=== PATIENT | male | born 1965 | race Caucasian/White ===

== ENCOUNTER 2017-01-10 11:11 | Inpatient (IN) | payer OTHER ==
[2017-01-09 21:45] VITALS: BP 100/35; PULSE 82; RESP 30; TEMP 96.1; O2SAT 93
[2017-01-10] VITALS (18 sets, daily range): BP systolic 100–118; BP diastolic 35–93; PULSE 72–152; RESP 15–30; TEMP 96.1–97.6; O2SAT 93–97
[~2017-01-10] VITALS: Ht 177.8 cm; Wt 87.5 kg
[~2017-01-10 11:11] MED LIST: CLIN1CAP6 PO; HYDR-3580 PO; LORTA5 PO; MELO15 PO; NAPR500 PO
--- NOTE | 2017-01-10 11:21 | PD ---
Physical Exam Time Seen by Provider: 11:19 Narrative Cough for last 2 weeks; cough and chest congestion. Productive cough of yellow/ green/white sputum. Shortness of breath only with lying down. Fever and chills. Nausea, diarrhea. Taken over the counters with no improvement. No cardiac or lung disease history. Data Data Last Documented VS Vital Signs Date Time Temp Pulse Resp B/P (MAP) Pulse Ox O2 Delivery O2 Flow Rate FiO2 01/10/17 11:17 97.5 140 15 118/93 (101) 95 Orders Orders Complete Blood Count With Diff (01/10/17 11:23) Basic Metabolic Panel (Bmp) (01/10/17 11:23) B-Type Natriuretic Peptide (01/10/17 11:23) Chest, Pa & Lat (01/10/17 11:23) Electrocardiogram (01/10/17 11:23) Labs Laboratory Tests Test 01/10/17 12:19 White Blood Count 13.4 TH/MM3 Red Blood Count 5.04 MIL/MM3 Hemoglobin 17.0 GM/DL Hematocrit 51.0 % Mean Corpuscular Volume 101.1 FL Mean Corpuscular Hemoglobin 33.7 PG Mean Corpuscular Hemoglobin Concent 33.3 % Red Cell Distribution Width 16.8 % Platelet Count 328 TH/MM3 Mean Platelet Volume 8.8 FL Neutrophils (%) (Auto) 68.2 % Lymphocytes (%) (Auto) 21.2 % Monocytes (%) (Auto) 8.6 % Eosinophils (%) (Auto) 0.8 % Basophils (%) (Auto) 1.2 % Neutrophils # (Auto) 9.1 TH/MM3 Lymphocytes # (Auto) 2.9 TH/MM3 Monocytes # (Auto) 1.2 TH/MM3 Eosinophils # (Auto) 0.1 TH/MM3 Basophils # (Auto) 0.2 TH/MM3 CBC Comment DIFF FINAL Differential Comment Blood Urea Nitrogen 17 MG/DL Creatinine 1.06 MG/DL Random Glucose 110 MG/DL Calcium Level 9.3 MG/DL Sodium Level 135 MEQ/L Potassium Level 4.9 MEQ/L Chloride Level 102 MEQ/L Carbon Dioxide Level 24.6 MEQ/L Anion Gap 8 MEQ/L Estimat Glomerular Filtration Rate 74 ML/MIN [facility] Medical Record Reviewed: Yes Supervised Visit with LAMAR: No Scripts No Active Prescriptions or Reported Meds Condition: Stable Ingrid Bush Jan 10, 2017 11:21
--- NOTE | 2017-01-10 11:54 | RADRPT ---
EXAM DATE/TIME: 01/10/2017 11:53 [facility] COMPARISON: No previous studies available for comparison. INDICATIONS : Shortness of breath and cough. MEDICAL HISTORY : None. SURGICAL HISTORY : None. ENCOUNTER: Initial ACUITY: 1 day PAIN SCORE: 0/10 LOCATION: Bilateral chest FINDINGS: The cardiac silhouette is enlarged in transverse diameter. There are findings of congestive heart aicha lure with interstitial and alveolar opacity bilaterally. A small right sided effusion is present. CONCLUSION: 1. Cardiomegaly and findings of congestive heart failure. Irineo Kapoor MD on January 10, 2017 at 11:52 Board Certified Radiologist. This report was verified electronically.
[2017-01-10 12:32] LABS: AUTOMATED NEUTROPHIL # 9.1 TH/MM3 (1.8-7.7); BASOPHIL # 0.2 TH/MM3 (0-0.2); BASOPHIL % 1.2 % (0.0-2.0); EOSINOPHIL # 0.1 TH/MM3 (0-0.4); EOSINOPHIL % 0.8 % (0.0-4.0); HEMO FLAGS DIFF FINAL; LYMPH % 21.2 % (9.0-44.0); LYMPHOCYTE # 2.9 TH/MM3 (1.0-4.8); MEAN CELL VOLUME 101.1 FL (80.0-100.0); MEAN CORPUSCULAR HEMOGLOBIN 33.7 PG (27.0-34.0); MEAN CORPUSCULAR HGB CONC 33.3 % (32.0-36.0); MONO % 8.6 % (0.0-8.0); NEUT % 68.2 % (16.0-70.0); PLATELET COUNT 328 TH/MM3 (150-450); RED BLOOD COUNT 5.04 MIL/MM3 (4.50-5.90); RED CELL DISTRIBUTION WIDTH 16.8 % (11.6-17.2); WHITE BLOOD COUNT 13.4 TH/MM3 (4.0-11.0)
[2017-01-10 12:50] LABS: BICARBONATE 24.6 MEQ/L (21.0-32.0); POTASSIUM 4.9 MEQ/L (3.5-5.1)
[2017-01-10] MEDS ORDERED: FUROSEMIDE 40 MG/4 ML VIAL IV PUSH ONE (13:15)
[2017-01-10] MEDS ORDERED: DILTIAZEM HCL 25 MG/5 ML VIAL IV ONE (13:15)
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
[2017-01-10] MEDS: DILTIAZEM INJ 125 MG in SODIUM CHLORIDE 0.9% INJ 100 ML IV PRN (13:57)
[2017-01-10] MEDS ORDERED: [UNRECOGNIZED DRUG - OTHER] IV ONE (14:15)
[2017-01-10] MEDS ORDERED: HEPARIN SODIUM - IV 10,000 UNITS/10 ML VIAL IV ONE (14:15)
[2017-01-10 14:29] LABS: CKMB 7.8 NG/ML (0.5-3.6)
[2017-01-10 14:51] LABS: MEAN CELL VOLUME 100.4 FL (80.0-100.0); MEAN CORPUSCULAR HEMOGLOBIN 33.4 PG (27.0-34.0); MEAN CORPUSCULAR HGB CONC 33.2 % (32.0-36.0); PLATELET COUNT 304 TH/MM3 (150-450); RED BLOOD COUNT 4.78 MIL/MM3 (4.50-5.90); RED CELL DISTRIBUTION WIDTH 16.8 % (11.6-17.2); REVIEW FLAG FINAL; WHITE BLOOD COUNT 12.9 TH/MM3 (4.0-11.0)
--- NOTE | 2017-01-10 15:02 | PD ---
Physical Exam Date Seen by Provider: Jan 10, 2017 Time Seen by Provider: 14:00 Narrative I, Dr. Farah, have reviewed the advance practice practitioner's documentation and am in agreement, met with the patient face to face, made the diagnosis, and the medical decision making was done by me. *My assessment and Findings: Patient seen and evaluated with PA, please see PA note for further details. Patient apparently has had recent symptoms of shortness of breath, chest discomfort, and is found to be an A. fib with rapid ventricular response. He was initiated on Cardizem in the ER and on evaluation , had pulmonary edema on chest x-ray as well last evaluation, and was given Lasix as well. It is unclear what caused the patient to go into this dysrhythmias and further evaluation was requested with VQ scan. Heparin initiated for new onset A. fib. On exam, he is awake, alert, oriented, and in mild respiratory distress. Cardiac exam reveals fast and irregular heart beats with no rubs or murmurs. Abdomen is soft nontender. Chest evaluation reveals bilateral rails. Laboratory Tests Test 01/10/17 12:19 01/10/17 14:25 White Blood Count 13.4 TH/MM3 (4.0-11.0) 12.9 TH/MM3 (4.0-11.0) Mean Corpuscular Volume 101.1 FL (80.0-100.0) 100.4 FL (80.0-100.0) Monocytes (%) (Auto) 8.6 % (0.0-8.0) Neutrophils # (Auto) 9.1 TH/MM3 (1.8-7.7) Monocytes # (Auto) 1.2 TH/MM3 (0-0.9) Random Glucose 110 MG/DL (74-106) Sodium Level 135 MEQ/L (136-145) Estimat Glomerular Filtration Rate 74 ML/MIN (>89) Total Creatine Kinase 360 U/L (39-308) Creatine Kinase MB 7.8 NG/ML (0.5-3.6) Troponin I 0.21 NG/ML (0.02-0.05) B-Type Natriuretic Peptide 1815 PG/ML (0-100) Last 24 hours Impressions Chest X-Ray 01/10/17 1123 Signed Impressions: Service Date/Time: Tuesday, January 10, 2017 11:53 - CONCLUSION: 1. Cardiomegaly and findings of congestive heart failure. Irineo Kapoor MD BNP is fairly elevated. At this point, plan would be to admit the patient for further treatment. Data Data Last Documented VS Vital Signs Date Time Temp Pulse Resp B/P (MAP) Pulse Ox O2 Delivery O2 Flow Rate FiO2 01/10/17 14:18 105 01/10/17 13:32 20 97 Room Air 01/10/17 11:17 97.5 Orders Orders Complete Blood Count With Diff (01/10/17 11:23) Basic Metabolic Panel (Bmp) (01/10/17 11:23) B-Type Natriuretic Peptide (01/10/17 11:23) Chest, Pa & Lat (01/10/17 11:23) Electrocardiogram (01/10/17 11:23) Ecg Monitoring (01/10/17 13:10) Blood Pressure (01/10/17 13:10) Iv Access Insert/Monitor (01/10/17 13:10) Oximetry (01/10/17 13:10) Diltiazem Inj (Cardizem Inj) (01/10/17 13:15) Furosemide Inj (Lasix Inj) (01/10/17 13:15) Troponin I (01/10/17 13:11) Ckmb (Isoenzyme) Profile (01/10/17 13:11) Ventilation & Perfusion Scan (01/10/17 ) Diltiazem Inj (Cardizem Inj) (01/10/17 13:45) CKMB (01/10/17 12:19) CKMB% (01/10/17 12:19) Heparin Infusion LUPE.Q1H (01/10/17 14:12) Heparin Inj (Heparin Inj) (01/10/17 14:15) Heparin-D5w 20687/250 (For Ed) (Heparin- (01/10/17 14:15) Act Partial Throm Time (Ptt) (01/10/17 14:12) Prothrombin Time / Inr (Pt) (01/10/17 14:12) Cbc No Diff, Includes Plts (01/10/17 14:12) Cbc No Diff, Includes Plts (01/13/17 06:00) Act Partial Throm Time (Ptt) (01/10/17 21:12) Occult Blood (Hemoccult) Stool (01/10/17 14:12) Labs Laboratory Tests Test 01/10/17 12:19 01/10/17 14:25 White Blood Count 13.4 TH/MM3 12.9 TH/MM3 Red Blood Count 5.04 MIL/MM3 4.78 MIL/MM3 Hemoglobin 17.0 GM/DL 15.9 GM/DL Hematocrit 51.0 % 48.0 % Mean Corpuscular Volume 101.1 FL 100.4 FL Mean Corpuscular Hemoglobin 33.7 PG 33.4 PG Mean Corpuscular Hemoglobin Concent 33.3 % 33.2 % Red Cell Distribution Width 16.8 % 16.8 % Platelet Count 328 TH/MM3 304 TH/MM3 Mean Platelet Volume 8.8 FL 8.9 FL Neutrophils (%) (Auto) 68.2 % Lymphocytes (%) (Auto) 21.2 % Monocytes (%) (Auto) 8.6 % Eosinophils (%) (Auto) 0.8 % Basophils (%) (Auto) 1.2 % Neutrophils # (Auto) 9.1 TH/MM3 Lymphocytes # (Auto) 2.9 TH/MM3 Monocytes # (Auto) 1.2 TH/MM3 Eosinophils # (Auto) 0.1 TH/MM3 Basophils # (Auto) 0.2 TH/MM3 CBC Comment DIFF FINAL Differential Comment Blood Urea Nitrogen 17 MG/DL Creatinine 1.06 MG/DL Random Glucose 110 MG/DL Calcium Level 9.3 MG/DL Sodium Level 135 MEQ/L Potassium Level 4.9 MEQ/L Chloride Level 102 MEQ/L Carbon Dioxide Level 24.6 MEQ/L Anion Gap 8 MEQ/L Estimat Glomerular Filtration Rate 74 ML/MIN Total Creatine Kinase 360 U/L Creatine Kinase MB 7.8 NG/ML Creatine Kinase MB % 2.2 % Troponin I 0.21 NG/ML B-Type Natriuretic Peptide 1815 PG/ML [facility] Medical Record Reviewed: Yes Supervised Visit with LAMAR: Yes Diagnosis Primary Impression: Pulmonary edema Additional Impression: Atrial fibrillation with RVR Admitting Information Admitting Physician Requests: Admit Scripts No Active Prescriptions or Reported Meds Condition: Stable Joesph Farah MD Jan 10, 2017 15:02
[2017-01-10 15:04] LABS: APTT (PATIENT) 27.4 SEC (24.3-30.1); INTERNATIONAL NORMALIZED RATIO 1.1 RATIO; PROTHROMBIN TIME - PATIENT 12.7 SEC (9.8-11.6)
--- NOTE | 2017-01-10 16:09 | RADRPT ---
EXAM DATE/TIME: 01/10/2017 15:12 [facility] COMPARISON: CHEST PA & LAT, January 10, 2017, 11:53. INDICATIONS : Short of breath for 1 day. DOSE: 8.5 mCi Tc99m MAA IV 1.1 mCi Tc99m DTPA aerosol MEDICAL HISTORY : Atrial fibrillation and smoker. SURGICAL HISTORY : Ribs and ankle surgery. ENCOUNTER: Initial ACUITY: 1 day PAIN SCALE: 3/10 LOCATION: Bilateral chest TECHNIQUE: Following five minutes of tidal breathing of DTPA aerosol, planar images of the lungs were performed in eight projections. The patient was then injected with MAA, and eight-view perfusion scan was perf ormed. FINDINGS: There is a homogeneous pattern of aerosol delivery to the periphery of both lungs. No focal ventilat ory defects are seen. The perfusion lung scan demonstrates a homogenous pattern of uptake in both lungs. No segmental or s ubsegmental defects are seen. CONCLUSION: Low probability scan for pulmonary embolism Kavin Quiñones MD on January 10, 2017 at 16:06 Board Certified Radiologist. This report was verified electronically.
[2017-01-10] MEDS ORDERED: MAGNESIUM HYDROXIDE SUSP 30 ML CUP PO PRN (16:15)
[2017-01-10] MEDS ORDERED: SODIUM CHLORIDE 0.9% FLUSH 10 ML FLUSH IV FLUSH PRN (16:15)
[2017-01-10] MEDS ORDERED: LACTULOSE SYRUP 20 GM/30 ML CUP PO PRN (16:15)
[2017-01-10] MEDS ORDERED: SENNOSIDES 8.6 MG TAB PO PRN (16:15)
[2017-01-10] MEDS ORDERED: ONDANSETRON HCL 4 MG/2 ML VIAL IVP PRN (16:15)
[2017-01-10] MEDS ORDERED: NALOXONE HCL 0.4 MG/ML AMP IV PUSH PRN (16:15)
[2017-01-10] MEDS ORDERED: BISACODYL 10 MG SUPP RECTAL PRN (16:15)
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
[2017-01-10] MEDS ORDERED: METOPROLOL TARTRATE 25 MG TAB PO ONE (16:45)
[2017-01-10] MEDS: FUROSEMIDE 40 MG/4 ML VIAL IVP SCH (18:22)
[2017-01-10] MEDS ORDERED: ACETAMINOPHEN 500 MG CPLT PO PRN (18:45)
--- NOTE | 2017-01-10 19:47 | MB ---
cc: FERNY SIERRA DATE OF CONSULTATION 01/10/2017 DATE OF 1965 REASON FOR CONSULTATION Atrial fibrillation with RVR. HISTORY OF PRESENT ILLNESS 51-year-old male that presented to the hospital with worsening cough, productive phlegm and worsening shortness of breath. He reports that for the last 2 weeks he has been having fevers, chills, diarrhea. However, today it got to the point where he had severe difficulty breathing with lying down. In the emergency department EKG revealed atrial fibrillation with nonspecific ST changes which is new for him, for which cardiology has been consulted for further management and evaluation. The patient denies chest pain, palpitations , syncope. He reports being an active smoker as well as alcohol user daily. PAST MEDICAL HISTORY 1. Cellulitis. 2. Swelling of the right lower extremity. MEDICATIONS He does not know home medications. PAST SURGICAL HISTORY Has a history of a questionable abdominal surgery. SOCIAL HISTORY Yes to tobacco use. Yes to illicit drug use. ALLERGIES FISH CONTAINING PRODUCTS. CODEINE. IODINE, MILK, POTASSIUM IODINE, POVIDONE IODINE, SODIUM IODINE. REVIEW OF SYSTEMS Negative except for what is mentioned in HPI. FAMILY HISTORY He does not remember any premature coronary artery disease history. PHYSICAL EXAMINATION VITAL SIGNS: Temperature 97.5, respiratory rate 18, heart rate 117, blood pressure 103/81, O2 sats 96% 2 liters nasal cannula. GENERAL: He is an awake, alert, oriented x3 in no acute distress. NECK: No JVD or carotid bruits. HEART: Irregularly irregular with no murmurs, rubs or gallops. LUNGS: Bilateral rales and congestion. ABDOMEN: Benign. EXTREMITIES: No cyanosis or edema. Pulses throughout. LABORATORY DATA CBC hemoglobin 15, hematocrit 48, platelet count 304. INR 1.1. Chemistries sodium 135, potassium 4.9, BUN 17, creatinine 1.06. Troponin 0.21. BNP of 1815. IMAGING Chest x-ray cardiomegaly and findings of pulmonary congestion. VQ scan pending. EKG atrial fibrillation with rapid ventricular response and nonspecific ST changes. ASSESSMENT/PLAN 51-year-old male with no significant cardiac medical history presenting with productive cough, fevers, chills, nausea, diarrhea and worsening shortness of breath on exertion for the last 2 weeks. He has been found to be in atrial fibrillation apparently of new onset. He remains afebrile and hemodynamically stable. He has been started on a Cardizem drip. The first set of cardiac troponin elevated at 0.21. He denies any chest pains, leg edema or PND. It is possible that the troponin elevation could be due to the atrial fibrillation with RVR however it can also be due to acute coronary syndrome, thus at this point I would recommend to admit him to the telemetry unit for two cycles of cardiac enzymes, continue heparin drip as well as Cardizem drip and transition to PO Cardizem when rate is control. Get a 2-D echocardiogram. Start aspirin, statins. An ROSALIND inhibitor as tolerated by blood pressure. He will also need some breathing treatments with Atrovent. Thank you for the opportunity to take part in the care of this patient. Further management to be determined. MD SHIELA Jessica/SILVIA /5:36 PM /7:23 PM MTDNeda
[2017-01-10] MEDS: ACETAMINOPHEN 325 MG TAB PO PRN (20:48)
[2017-01-10] MEDS: SODIUM CHLORIDE 0.9% FLUSH 10 ML FLUSH IV FLUSH SCH (20:48)
[2017-01-10 21:40] LABS: APTT (PATIENT) 47.9 SEC (24.3-30.1)
[2017-01-11] VITALS (31 sets, daily range): BP systolic 103–122; BP diastolic 59–77; PULSE 94–129; RESP 16–28; TEMP 97.5–98.6; O2SAT 91–98
[2017-01-11] MEDS ORDERED: NITROGLYCERIN 0.4 MG SL 25 TABS/BTL SL PRN (01:15)
[2017-01-11 04:01] LABS: AUTOMATED NEUTROPHIL # 5.7 TH/MM3 (1.8-7.7); BASOPHIL # 0.2 TH/MM3 (0-0.2); BASOPHIL % 1.5 % (0.0-2.0); EOSINOPHIL # 0.1 TH/MM3 (0-0.4); EOSINOPHIL % 1.2 % (0.0-4.0); HEMATOCRIT 42.8 % (39.0-51.0); HEMO FLAGS DIFF FINAL; LYMPH % 32.2 % (9.0-44.0); LYMPHOCYTE # 3.3 TH/MM3 (1.0-4.8); MEAN CELL VOLUME 99.9 FL (80.0-100.0); MEAN CORPUSCULAR HEMOGLOBIN 33.2 PG (27.0-34.0); MEAN CORPUSCULAR HGB CONC 33.2 % (32.0-36.0); MONO % 10.1 % (0.0-8.0); PLATELET COUNT 267 TH/MM3 (150-450); RED BLOOD COUNT 4.29 MIL/MM3 (4.50-5.90); RED CELL DISTRIBUTION WIDTH 16.5 % (11.6-17.2); WHITE BLOOD COUNT 10.4 TH/MM3 (4.0-11.0)
[2017-01-11 04:16] LABS: APTT (PATIENT) 77.3 SEC (24.3-30.1)
[2017-01-11 04:37] LABS: ALT (GPT) 65 U/L (12-78); ANION GAP 9 MEQ/L (5-15); AST (GOT) 41 U/L (15-37); BICARBONATE 26.2 MEQ/L (21.0-32.0); BLOOD UREA NITROGEN 20 MG/DL (7-18); CHLORIDE 100 MEQ/L (98-107); GLOMERULAR FILTRATION RATE 62 ML/MIN (>89); POTASSIUM 3.9 MEQ/L (3.5-5.1); SODIUM (NA) 135 MEQ/L (136-145)
[2017-01-11 04:45] LABS: ALKALINE PHOSPHATASE 69 U/L (45-117); TOTAL BILIRUBIN ADULT 0.8 MG/DL (0.2-1.0)
[2017-01-11] MEDS: RESP: ALBUTEROL 2.5 MG/IPRATROPIUM 0.5 MG NEB (SCH) NEB ×4 (08:00→19:55)
--- NOTE | 2017-01-11 08:29 | EKG ---
Date Performed: 01/10/2017 Time Performed: 12:54:58 PTAGE: 51 years EKG: ATRIAL FIBRILLATION WITH RAPID VENTRICULAR RESPONSE POSSIBLE RIGHT VENTRICULAR HYPERTROPHY ABNORMAL ECG PREVIOUS TRACING : 08/10/2005 08.30 When compared to prior EKG, patient is now in atrial fibril lation. DOCTOR: Saida Rosales Interpretating Date/Time 01/11/2017 08:28:46
[2017-01-11] MEDS ORDERED: INFLUENZA VIRUS VACCINE (QUADRIVALENT) 0.5 ML SYR IM ONE (09:00)
[2017-01-11] MEDS ORDERED: PNEUMOCOCCAL POLYVALENT INJ 25 MCG/0.5 ML SYR IM ONE (09:00)
[2017-01-11] MEDS: FUROSEMIDE 40 MG/4 ML VIAL IVP SCH ×2 (09:08→17:47)
[2017-01-11] MEDS: SODIUM CHLORIDE 0.9% FLUSH 10 ML FLUSH IV FLUSH SCH ×2 (09:08→21:54)
--- NOTE | 2017-01-11 11:01 | HHI.PR ---
Subjective Remarks Follow-up CHF, A. fib with RVR. Patient denies chest pain or dyspnea. States that he feels much better today. He has been urinating a lot. Swelling is improving as well. Objective Vitals Vital Signs Date Time Temp Pulse Resp B/P (MAP) Pulse Ox O2 Delivery O2 Flow Rate FiO2 01/11/17 06:00 98 01/11/17 05:00 94 01/11/17 04:00 100 01/11/17 03:00 100 01/11/17 03:00 97.5 96 23 122/73 (89) 95 01/11/17 02:12 96 35 01/11/17 02:00 102 01/11/17 01:00 100 01/11/17 00:30 97.9 99 28 103/67 (79) 91 01/11/17 00:00 100 01/10/17 23:00 93 01/10/17 22:00 88 01/10/17 21:00 72 01/10/17 20:45 96.1 82 30 100/35 (56) 93 01/10/17 20:00 72 01/10/17 19:00 81 01/10/17 18:48 75 106/57 01/10/17 18:25 97.6 75 17 106/57 (73) 96 01/10/17 18:00 01/10/17 17:05 117 01/10/17 16:16 103 01/10/17 16:14 96 Nasal Cannula 2.00 01/10/17 16:10 118 18 103/81 (88) 96 01/10/17 15:15 100 01/10/17 14:18 105 01/10/17 13:57 120 106/86 01/10/17 13:41 132 01/10/17 13:32 127 20 108/84 (92) 97 Room Air 01/10/17 13:28 149 117/85 (96) 01/10/17 13:25 152 18 109/87 (94) 97 Room Air 01/10/17 11:17 97.5 140 15 118/93 (101) 95 I/O 01/10/17 01/10/17 01/10/17 01/11/17 01/11/17 01/11/17 07:00 15:00 23:00 07:00 15:00 23:00 Intake Total 240 ml Output Total 620 ml 300 ml Balance -620 ml -60 ml Intake Oral 240 ml Output Urine Total 620 ml 300 ml Result Diagram: 01/11/17 0350 01/11/17 0350 Imaging Last Impressions Chest X-Ray 01/10/17 1123 Signed Impressions: Service Date/Time: Tuesday, January 10, 2017 11:53 - CONCLUSION: 1. Cardiomegaly and findings of congestive heart failure. Irineo Kapoor MD Lung Scan-VQ Nuclear Medicine 01/10/17 0000 Signed Impressions: Service Date/Time: Tuesday, January 10, 2017 15:12 - CONCLUSION: Low probability scan for pulmonary embolism Kavin Quiñones MD Objective Remarks General: No acute distress. Heart: Regular rate and rhythm. No murmur. Lungs: Clear to auscultation bilaterally. No wheezes, rales, or rhonchi. Breathing is nonlabored. Abdomen: Soft, nontender, nondistended. Extremities: Trace bilateral lower extremity edema. Psych: Alert and oriented. Procedures None Urinary Catheter: No Vascular Central Line Catheter: No A/P Problem List: (1) CHF (congestive heart failure) ICD Code: I50.9 - Heart failure, unspecified Status: Acute (2) Elevated troponin ICD Code: R74.8 - Abnormal levels of other serum enzymes Status: Acute (3) Atrial fibrillation with RVR ICD Code: I48.91 - Unspecified atrial fibrillation Status: Acute Assessment and Plan 1. Atrial fibrillation with RVR: Rate control improved on Cardizem drip. Transition to oral Cardizem. Appreciate cardiology recommendations. 2. New onset congestive heart failure: Swelling is improving. Echocardiogram pending. Continue diuresis with IV Lasix. Monitor strict intake/output. 3. NSTEMI: Troponin elevated. Appreciate cardiology recommendations. On heparin drip. 4. DVT prophylaxis: Heparin. Problem Qualifiers (1) CHF (congestive heart failure): Qualified Codes: I50.9 - Heart failure, unspecified Sidney Haley MD Jan 11, 2017 11:01
[2017-01-11] MEDS: ACETAMINOPHEN 325 MG TAB PO PRN (13:24)
[2017-01-11] MEDS: POTASSIUM CHLORIDE 20 MEQ CONTROLLED RELEASE TAB PO SCH ×2 (13:24→21:54)
--- NOTE | 2017-01-11 18:35 | ECHRPT ---
Indication: Heart Failure CONCLUSIONS The left ventricular systolic function is severely reduced with an estimated ejection fraction in th e range of 25-30%. Mild concentric left ventricular hypertrophy. There is global left ventricular dysfunction. Doppler parameters are consistent with a pseudonormal left ventricular filling pattern with concomin ant abnormal relaxation and increased filling pressure (grade 2 diastolic dysfunction). Mild mitral valve regurgitation. There is mild tricuspid valve regurgitation. BP: 103 / 67 HR: 99 Rhythm: Sinus MEASUREMENTS (Male / Female) Normal Values Technical Quality:Fair 2D ECHO LV Diastolic Diameter PLAX 4.9 cm 4.2 - 5.9 / 3.9 - 5.3 cm LV Systolic Diameter PLAX 4.2 cm IVS Diastolic Thickness 1.4 cm 0.6 - 1.0 / 0.6 - 0.9 cm LVPW Diastolic Thickness 1.3 cm 0.6 - 1.0 / 0.6 - 0.9 cm LV Relative Wall Thickness 0.5 RV Internal Dim ED PLAX 3.8 cm LVOT Diameter 2.0 cm LA Systolic Diameter LX 5.1 cm 3.0 - 4.0 / 2.7 - 3.8 cm M-MODE LV Diastolic Diameter MM 5.8 cm 4.2 - 5.9 / 3.9 - 5.3 cm LV Systolic Diameter MM 5.1 cm LV Ejection Fraction MM Teich 25.6 % LV Cardiac Index MM Teich 1958.5 cm/minm IVS Diastolic Thickness MM 1.1 cm 0.6 - 1.0 / 0.6 - 0.9 cm LVPW Diastolic Thickness MM 1.1 cm 0.6 - 1.0 / 0.6 - 0.9 cm LV Relative Wall Thickness MM 0.4 0.24 - 0.42 / 0.22 - 0.42 LV Mass Index MM 125.2 g/m 49 - 115 / 43 - 95 g/m Aortic Root Diameter MM 3.0 cm AV Cusp Separation MM 2.0 cm DOPPLER AV Peak Velocity 107.0 cm/s AV Peak Gradient 4.6 mmHg LVOT Peak Velocity 51.8 cm/s LVOT Peak Gradient 1.1 mmHg AV Area Cont Eq pk 1.5 cm MV Area PHT 6.1 cm Mitral E Point Velocity 108.0 cm/s Mitral A Point Velocity 77.0 cm/s Mitral E to A Ratio 1.4 LV E' Lateral Velocity 6.0 cm/s Mitral E to LV E' Lateral Ratio 17.9 LV E' Septal Velocity 3.2 cm/s Mitral E to LV E' Septal Ratio 33.5 TR Peak Velocity 274.0 cm/s TR Peak Gradient 30.0 mmHg Right Atrial Pressure 10.0 mmHg Pulmonary Artery Systolic Pressu 40.0 mmHg Right Ventricular Systolic Press 40.0 mmHg PV Peak Velocity 100.0 cm/s PV Peak Gradient 4.0 mmHg FINDINGS LEFT VENTRICLE The left ventricular systolic function is severely reduced with an estimated ejection fraction in th e range of 25-30%. Normal left ventricular size. Mild concentric left ventricular hypertrophy. There is global left ventricular dysfunction. Doppler parameters are consistent with a pseudonormal left ventricular filling pattern with concomin ant abnormal relaxation and increased filling pressure (grade 2 diastolic dysfunction). RIGHT VENTRICLE The right ventricular size is normal. LEFT ATRIUM The left atrial size is [id number]-sa-[id number] dilated. RIGHT ATRIUM The right atrial size is normal. ATRIAL SEPTUM Normal atrial septal thickness without atrial level shunting by limited color doppler interrogation. The interatrial septum bowed from left to right, consistent with increased left atrial pressure. AORTA The aortic root and proximal ascending aorta are normal in size on limited imaging. MITRAL VALVE Structurally normal mitral valve. Mild mitral valve regurgitation. No mitral valve stenosis. AORTIC VALVE Trileaflet aortic valve. No aortic valve stenosis or regurgitation. TRICUSPID VALVE Structurally normal tricuspid valve. There is mild tricuspid valve regurgitation. The estimated pulmonary arterial pressure is 40 mmHg. PULMONARY VALVE No pulmonary valve regurgitation or stenosis. VESSELS The inferior vena cava is normal in size. PERICARDIUM No pericardial effusion. Liang Botello DO (Electronically Signed) Final Date:11 January 2017 18:34
[2017-01-12] VITALS (23 sets, daily range): BP systolic 94–129; BP diastolic 62–86; PULSE 81–124; RESP 14–16; TEMP 97.8–98.7; O2SAT 92–97
[2017-01-12] MEDS: DILTIAZEM INJ 125 MG in SODIUM CHLORIDE 0.9% INJ 100 ML IV PRN ×2 (05:30→21:21)
[2017-01-12 07:05] LABS: BICARBONATE 26.6 MEQ/L (21.0-32.0)
[2017-01-12] MEDS: RESP: ALBUTEROL 2.5 MG/IPRATROPIUM 0.5 MG NEB (SCH) NEB ×4 (07:50→21:17)
[2017-01-12] MEDS: SODIUM CHLORIDE 0.9% FLUSH 10 ML FLUSH IV FLUSH SCH ×2 (08:45→21:22)
[2017-01-12] MEDS: FUROSEMIDE 40 MG/4 ML VIAL IVP SCH ×2 (08:45→18:19)
[2017-01-12] MEDS: DILTIAZEM HCL 30 MG TAB PO SCH ×3 (08:45→18:19)
[2017-01-12] MEDS: POTASSIUM CHLORIDE 20 MEQ CONTROLLED RELEASE TAB PO SCH ×2 (08:45→21:21)
[2017-01-12] MEDS ORDERED: ENOXAPARIN SODIUM 40 MG/0.4 ML SYRINGE SQ SCH (09:30)
--- NOTE | 2017-01-12 09:39 | HHI.PR ---
Subjective Remarks Follow up CHF. Patient states that his breathing has improved. No chest pain, dyspnea, palpitations this morning. Lower extremity swelling also improved. Objective Vitals Vital Signs Date Time Temp Pulse Resp B/P (MAP) Pulse Ox O2 Delivery O2 Flow Rate FiO2 01/12/17 08:45 108 115/86 01/12/17 08:00 100 01/12/17 08:00 97.8 108 16 115/86 (96) 92 01/12/17 07:51 95 Nasal Cannula 2.00 01/12/17 06:00 104 01/12/17 05:30 97 129/69 01/12/17 05:00 108 01/12/17 04:00 118 01/12/17 03:25 112 129/69 01/12/17 03:00 98.7 112 14 129/69 (89) 94 01/12/17 03:00 112 01/12/17 02:25 96 2.00 01/12/17 02:00 106 01/12/17 01:00 106 01/12/17 00:00 106 01/11/17 23:00 106 01/11/17 23:00 98.3 115 16 117/62 (80) 98 01/11/17 22:00 116 01/11/17 21:00 102 01/11/17 20:00 104 01/11/17 19:56 95 Nasal Cannula 2.00 01/11/17 19:00 106 01/11/17 19:00 97.8 97 16 121/74 (90) 97 01/11/17 18:00 106 01/11/17 17:00 114 01/11/17 16:29 96 Nasal Cannula 2.00 01/11/17 16:00 100 01/11/17 15:06 129 01/11/17 15:00 98.6 98 18 113/77 (89) 95 01/11/17 14:07 106 01/11/17 13:00 101 01/11/17 12:04 101 01/11/17 11:36 95 Nasal Cannula 3.00 01/11/17 11:30 98.2 104 22 108/74 (85) 94 01/11/17 11:00 113 01/11/17 10:00 106 I/O 01/11/17 01/11/17 01/11/17 01/12/17 01/12/1701/12/17 07:00 15:00 23:00 07:00 15:00 23:00 Intake Total 240 ml 720 ml 480 ml Output Total 300 ml 1675 ml 1600 ml Balance -60 ml -955 ml -1120 ml Intake Oral 240 ml 720 ml 480 ml Output Urine Total 300 ml 1675 ml 1600 ml # Bowel Movements 1 Result Diagram: 01/11/17 0350 01/12/17 0610 Imaging Last Impressions Chest X-Ray 01/10/17 1123 Signed Impressions: Service Date/Time: Tuesday, January 10, 2017 11:53 - CONCLUSION: 1. Cardiomegaly and findings of congestive heart failure. Irineo Kapoor MD Lung Scan-VQ Nuclear Medicine 01/10/17 0000 Signed Impressions: Service Date/Time: Tuesday, January 10, 2017 15:12 - CONCLUSION: Low probability scan for pulmonary embolism Kavin Quiñones MD Objective Remarks General: No acute distress. Heart: Regular rate and rhythm. No murmur. Lungs: Clear to auscultation bilaterally. No wheezes, rales, or rhonchi. Breathing is nonlabored. Abdomen: Soft, nontender, nondistended. Extremities: Trace bilateral lower extremity edema. Psych: Alert and oriented. Procedures None Urinary Catheter: No Vascular Central Line Catheter: No A/P Problem List: (1) CHF (congestive heart failure) ICD Code: I50.9 - Heart failure, unspecified Status: Acute (2) Elevated troponin ICD Code: R74.8 - Abnormal levels of other serum enzymes Status: Acute (3) Atrial fibrillation with RVR ICD Code: I48.91 - Unspecified atrial fibrillation Status: Acute Assessment and Plan 1. Atrial fibrillation with RVR: Rate still elevated. On Cardizem drip. Start oral Cardizem. Appreciate cardiology recommendations. Heparin drip. 2. New onset congestive heart failure: Swelling is improving. Echocardiogram shows EF 25-30%. Continue diuresis with IV Lasix. Monitor strict intake/output. 3. NSTEMI: Troponin elevated. Appreciate cardiology recommendations. On heparin drip. 4. DVT prophylaxis: Heparin. Problem Qualifiers (1) CHF (congestive heart failure): Qualified Codes: I50.9 - Heart failure, unspecified Sidney Haley MD Jan 12, 2017 09:39
[2017-01-12] MEDS: HEPARIN-D5W 25,000 U/250 ML 250 ML IV PRN (09:45)
[2017-01-12] MEDS: ACETAMINOPHEN 325 MG TAB PO PRN (11:53)
[2017-01-12] MEDS ORDERED: PNEUMOCOCCAL POLYVALENT INJ 25 MCG/0.5 ML SYR IM ONE (12:00)
[2017-01-12] MEDS ORDERED: INFLUENZA VIRUS VACCINE (QUADRIVALENT) 0.5 ML SYR IM ONE (12:00)
[2017-01-12 12:36] LABS: MEAN CELL VOLUME 100.5 FL (80.0-100.0); MEAN CORPUSCULAR HEMOGLOBIN 33.2 PG (27.0-34.0); PLATELET COUNT 260 TH/MM3 (150-450); RED BLOOD COUNT 4.58 MIL/MM3 (4.50-5.90); RED CELL DISTRIBUTION WIDTH 16.7 % (11.6-17.2); REVIEW FLAG FINAL
[2017-01-12 12:45] LABS: APTT (PATIENT) 29.6 SEC (24.3-30.1); INTERNATIONAL NORMALIZED RATIO 1.1 RATIO; PROTHROMBIN TIME - PATIENT 12.1 SEC (9.8-11.6)
[2017-01-12 21:44] LABS: APTT (PATIENT) 30.4 SEC (24.3-30.1)
[2017-01-13] VITALS (23 sets, daily range): BP systolic 100–127; BP diastolic 44–88; PULSE 62–100; RESP 14–19; TEMP 97.7–98.4; O2SAT 94–97
[2017-01-13] MEDS: DILTIAZEM HCL 30 MG TAB PO SCH ×2 (00:26→06:55)
[2017-01-13 07:03] LABS: HEMATOCRIT 44.2 % (39.0-51.0); MEAN CELL VOLUME 100.6 FL (80.0-100.0); MEAN CORPUSCULAR HEMOGLOBIN 33.5 PG (27.0-34.0); MEAN CORPUSCULAR HGB CONC 33.3 % (32.0-36.0); PLATELET COUNT 251 TH/MM3 (150-450); RED CELL DISTRIBUTION WIDTH 16.7 % (11.6-17.2); REVIEW FLAG FINAL; WHITE BLOOD COUNT 9.3 TH/MM3 (4.0-11.0)
[2017-01-13 07:11] LABS: BICARBONATE 28.3 MEQ/L (21.0-32.0); POTASSIUM 4.1 MEQ/L (3.5-5.1)
[2017-01-13] MEDS: RESP: ALBUTEROL 2.5 MG/IPRATROPIUM 0.5 MG NEB (SCH) NEB ×4 (08:00→21:21)
[2017-01-13] MEDS: ACETAMINOPHEN 325 MG TAB PO PRN ×2 (08:34→20:29)
[2017-01-13] MEDS: FUROSEMIDE 40 MG/4 ML VIAL IVP SCH ×2 (08:34→16:49)
[2017-01-13] MEDS: POTASSIUM CHLORIDE 20 MEQ CONTROLLED RELEASE TAB PO SCH ×2 (08:34→20:28)
[2017-01-13] MEDS: SODIUM CHLORIDE 0.9% FLUSH 10 ML FLUSH IV FLUSH SCH ×2 (08:35→20:28)
[2017-01-13 10:07] LABS: APTT (PATIENT) 35.4 SEC (24.3-30.1)
--- NOTE | 2017-01-13 11:28 | HHI.PR ---
Subjective Remarks Follow-up CHF, atrial fibrillation. Patient reports cough that is nonproductive. Denies chest pain or dyspnea. He was placed on supplemental oxygen secondary to low O2 sat overnight. Objective Vitals Vital Signs Date Time Temp Pulse Resp B/P (MAP) Pulse Ox O2 Delivery O2 Flow Rate FiO2 01/13/17 09:21 16 01/13/17 08:00 97 01/13/17 08:00 98.1 96 19 113/88 (96) 97 Manual Cuff/Auscultation 01/13/17 06:00 96 01/13/17 05:00 100 01/13/17 04:00 98.1 88 14 127/44 (71) 94 01/13/17 00:00 92 01/13/17 00:00 88 14 106/60 (75) 94 01/12/17 23:00 94 01/12/17 23:00 88 106/60 01/12/17 22:00 94 01/12/17 21:21 92 101/77 01/12/17 21:20 95 01/12/17 21:00 90 01/12/17 20:00 96 01/12/17 20:00 97.8 89 16 101/77 (85) 94 01/12/17 19:00 110 01/12/17 16:36 97.8 81 16 94/68 (77) 94 01/12/17 16:36 87 01/12/17 16:09 93 01/12/17 12:00 97.9 93 16 111/62 (78) 97 01/12/17 12:00 103 01/12/17 11:00 112 I/O 01/12/17 01/12/17 01/12/17 01/13/17 01/13/17 01/13/17 07:00 15:00 23:00 07:00 15:00 23:00 Intake Total 480 ml 760 ml 480 ml Output Total 1600 ml 975 ml 1150 ml Balance -1120 ml -215 ml -670 ml Intake Oral 480 ml 760 ml 480 ml Output Urine Total 1600 ml 975 ml 1150 ml # Bowel Movements 1 Result Diagram: 01/13/17 0550 01/13/17 0550 Imaging Last Impressions Chest X-Ray 01/10/17 1123 Signed Impressions: Service Date/Time: Tuesday, January 10, 2017 11:53 - CONCLUSION: 1. Cardiomegaly and findings of congestive heart failure. Irineo Kapoor MD Lung Scan-VQ Nuclear Medicine 01/10/17 0000 Signed Impressions: Service Date/Time: Tuesday, January 10, 2017 15:12 - CONCLUSION: Low probability scan for pulmonary embolism Kavin Quiñones MD Objective Remarks General: No acute distress. Heart: Regular rate and rhythm. No murmur. Lungs: Clear to auscultation bilaterally. No wheezes, rales, or rhonchi. Breathing is nonlabored. Abdomen: Soft, nontender, nondistended. Extremities: Trace bilateral lower extremity edema, right greater than left. Psych: Alert and oriented. Procedures None Urinary Catheter: No Vascular Central Line Catheter: No A/P Problem List: (1) CHF (congestive heart failure) ICD Code: I50.9 - Heart failure, unspecified Status: Acute (2) Elevated troponin ICD Code: R74.8 - Abnormal levels of other serum enzymes Status: Acute (3) Atrial fibrillation with RVR ICD Code: I48.91 - Unspecified atrial fibrillation Status: Acute Assessment and Plan 1. Atrial fibrillation with RVR: Rate control improved. Increase oral Cardizem and wean off Cardizem drip. Appreciate cardiology recommendations. Heparin drip. 2. New onset congestive heart failure: Swelling is improving. Echocardiogram shows EF 25-30%. Continue diuresis with IV Lasix. Monitor strict intake/output. 3. NSTEMI: Troponin elevated. Appreciate cardiology recommendations. On heparin drip. 4. DVT prophylaxis: Heparin. Problem Qualifiers (1) CHF (congestive heart failure): Qualified Codes: I50.9 - Heart failure, unspecified Sidney Haley MD Jan 13, 2017 10:42
[2017-01-13] MEDS ORDERED: DILTIAZEM HCL 30 MG TAB PO ONE (11:30)
[2017-01-13] MEDS: DILTIAZEM HCL 60 MG TAB PO SCH (16:49)
[2017-01-14] VITALS (27 sets, daily range): BP systolic 92–116; BP diastolic 50–79; PULSE 60–100; RESP 16–20; TEMP 97.5–98.1; O2SAT 94–97
[2017-01-14 02:23] LABS: APTT (PATIENT) 47.3 SEC (24.3-30.1)
[2017-01-14] MEDS: DILTIAZEM HCL 60 MG TAB PO SCH ×5 (05:52→23:08)
[2017-01-14] MEDS: HEPARIN-D5W 25,000 U/250 ML 250 ML IV PRN (05:58)
[2017-01-14 09:00] LABS: APTT (PATIENT) 43.4 SEC (24.3-30.1)
[2017-01-14] MEDS: SODIUM CHLORIDE 0.9% FLUSH 10 ML FLUSH IV FLUSH SCH ×2 (09:00→20:28)
[2017-01-14] MEDS: RESP: ALBUTEROL 2.5 MG/IPRATROPIUM 0.5 MG NEB (SCH) NEB ×4 (09:36→21:45)
[2017-01-14] MEDS: POTASSIUM CHLORIDE 20 MEQ CONTROLLED RELEASE TAB PO SCH ×2 (09:59→20:28)
--- NOTE | 2017-01-14 11:36 | HHI.PR ---
Subjective Remarks Follow-up A. fib with RVR/systolic CHF/non-ST elevation AR 01/14/17-patient seen and examined, currently rate controlled. BP soft. Denies any chest pain or shortness of breath Objective Vitals Vital Signs Date Time Temp Pulse Resp B/P (MAP) Pulse Ox O2 Delivery O2 Flow Rate FiO2 01/14/17 09:56 97.6 01/14/17 09:00 97.5 72 18 114/74 (87) 94 01/14/17 06:00 88 01/14/17 05:50 87 106/74 (85) 01/14/17 05:00 80 01/14/17 04:00 74 01/14/17 03:30 98.0 77 16 92/50 (64) 96 01/14/17 03:00 84 01/14/17 02:00 80 01/14/17 01:00 84 01/14/17 00:00 74 01/13/17 23:00 74 01/13/17 23:00 98.1 70 16 100/70 (80) 94 01/13/17 22:00 82 01/13/17 21:23 95 01/13/17 21:00 74 01/13/17 20:00 76 01/13/17 20:00 97.7 75 16 103/71 (82) 96 01/13/17 19:00 76 01/13/17 18:00 82 01/13/17 17:00 78 01/13/17 16:00 98.1 62 16 114/82 (93) 94 01/13/17 16:00 90 01/13/17 15:00 82 01/13/17 14:00 90 01/13/17 13:00 90 01/13/17 12:20 96 01/13/17 12:00 89 01/13/17 12:00 98.4 80 18 103/68 (80) 95 I/O 01/13/17 01/13/17 01/13/17 01/14/17 01/14/17 01/14/17 07:00 15:00 23:00 07:00 15:00 23:00 Intake Total 480 ml 1290 ml 661 ml Output Total 1150 ml 1400 ml 1200 ml Balance -670 ml -110 ml -539 ml Intake Oral 480 ml 1080 ml 480 ml IV Total 210 ml 181 ml Output Urine Total 1150 ml 1400 ml 1200 ml # Bowel Movements 1 0 Result Diagram: 01/13/17 0550 01/13/17 0550 Imaging Last Impressions Chest X-Ray 01/10/17 1123 Signed Impressions: Service Date/Time: Tuesday, January 10, 2017 11:53 - CONCLUSION: 1. Cardiomegaly and findings of congestive heart failure. Irineo Kapoor MD Lung Scan-VQ Nuclear Medicine 01/10/17 0000 Signed Impressions: Service Date/Time: Tuesday, January 10, 2017 15:12 - CONCLUSION: Low probability scan for pulmonary embolism Kavin Quiñones MD Objective Remarks GENERAL: NAD SKIN: Warm and dry. HEAD: Normocephalic. EYES: No scleral icterus. No injection or drainage. NECK: Supple, trachea midline. No JVD or lymphadenopathy. CARDIOVASCULAR: Irregular Regular rate and rhythm without murmurs, gallops, or rubs. RESPIRATORY: Breath sounds equal bilaterally. No accessory muscle use. GASTROINTESTINAL: Abdomen soft, non-tender, nondistended. MUSCULOSKELETAL: No cyanosis, or edema. BACK: Nontender without obvious deformity. No CVA tenderness. Procedures None A/P Problem List: (1) Acute systolic CHF (congestive heart failure) ICD Code: I50.21 - Acute systolic (congestive) heart failure (2) Elevated troponin ICD Code: R74.8 - Abnormal levels of other serum enzymes Status: Acute (3) Atrial fibrillation with RVR ICD Code: I48.91 - Unspecified atrial fibrillation Status: Acute Assessment and Plan 51-year-old man with 1-Atrial fibrillation with RVR: Currently on Cardizem 60mg Q6H however will have to change to 240 mg daily secondary to low BP okay with cardiology, Heparin drip. [id number] score of 1 therefore will Start patient on ASA 81 mg daily; d/c Heparin drip 2-Acute Systolic CHF: EF of 25-30%. Secondary to low BP, change Lasix to 20 mg twice a day.Will start ROSALIND-I 2.5mg daily 3-NSTEMI: Appreciate input from cardiology 4-Tobacco abuse: Tobacco counseling provided, declined nicotine patch DVT prophylaxis: Heparin Po Blue MD Jan 14, 2017 11:36
[2017-01-14] MEDS: FUROSEMIDE 20 MG TAB PO SCH ×2 (12:44→18:05)
[2017-01-14] MEDS: ACETAMINOPHEN 325 MG TAB PO PRN (12:45)
[2017-01-15] VITALS (17 sets, daily range): BP systolic 85–140; BP diastolic 58–97; PULSE 62–138; RESP 18–20; TEMP 97.6–98.3; O2SAT 95–98
[2017-01-15 05:23] LABS: HEMATOCRIT 48.8 % (39.0-51.0); MEAN CORPUSCULAR HEMOGLOBIN 33.2 PG (27.0-34.0); MEAN CORPUSCULAR HGB CONC 32.9 % (32.0-36.0); PLATELET COUNT 244 TH/MM3 (150-450); RED BLOOD COUNT 4.84 MIL/MM3 (4.50-5.90); RED CELL DISTRIBUTION WIDTH 16.9 % (11.6-17.2); REVIEW FLAG FINAL; WHITE BLOOD COUNT 7.7 TH/MM3 (4.0-11.0)
[2017-01-15 05:38] LABS: APTT (PATIENT) 43.9 SEC (24.3-30.1)
[2017-01-15] MEDS: DILTIAZEM HCL 60 MG TAB PO SCH (06:00)
[2017-01-15] MEDS: POTASSIUM CHLORIDE 20 MEQ CONTROLLED RELEASE TAB PO SCH (09:23)
[2017-01-15] MEDS: FUROSEMIDE 20 MG TAB PO SCH (09:23)
[2017-01-15] MEDS: SODIUM CHLORIDE 0.9% FLUSH 10 ML FLUSH IV FLUSH SCH (09:28)
--- NOTE | 2017-01-15 10:09 | HHI.PR ---
Subjective Remarks Written by Isa Lopez, acting as scribe for Dr. Blue on 01/15/17 at 10: 09. Follow-up visit A. fib with RVR, acute systolic CHF, and STEMI, tobacco abuse. Patient seen and examined today. Reports he is doing well. Continues to be on heparin drip. Rate has been controlled on Cardizem 60 mg every 6 hours. Denies any chest pain able to get in and out of bed without problems and has been ambulating inside his bedroom. Plan To discharge home today discussed with patient. Denies pain and discomfort. Denies SOB/ dyspnea. Denies chest pain, palpitations, headaches, dizziness. Denies fevers, chills, n/v/d. Objective Vitals Vital Signs Date Time Temp Pulse Resp B/P (MAP) Pulse Ox O2 Delivery O2 Flow Rate FiO2 01/15/17 07:00 Room Air 01/15/17 07:00 98 01/15/17 06:00 94 01/15/17 05:00 96 01/15/17 04:00 Room Air 01/15/17 04:00 100 01/15/17 04:00 98.2 100 20 85/58 (67) 97 01/15/17 03:00 96 01/15/17 02:00 97 01/15/17 01:00 96 01/15/17 00:00 95 01/15/17 00:00 98.3 95 20 100/58 (72) 95 01/15/17 00:00 Room Air 01/14/17 23:00 96 01/14/17 22:00 97 01/14/17 21:47 96 01/14/17 21:00 98 01/14/17 20:00 89 01/14/17 20:00 Room Air 01/14/17 20:00 98.1 89 20 116/79 (91) 96 01/14/17 18:01 98.0 60 18 115/74 (88) 97 01/14/17 18:00 82 01/14/17 17:00 82 01/14/17 16:00 82 01/14/17 15:00 82 01/14/17 14:00 80 01/14/17 13:45 18 01/14/17 13:00 80 01/14/17 12:00 97.8 72 18 110/64 (79) 96 01/14/17 12:00 82 01/14/17 11:00 82 I/O 01/14/17 01/14/17 01/14/17 01/15/17 01/15/17 01/15/17 07:00 15:00 23:00 07:00 15:00 23:00 Intake Total 661 ml 610 ml Output Total 1200 ml 1000 ml Balance -539 ml -390 ml Intake Oral 480 ml 480 ml IV Total 181 ml 130 ml Output Urine Total 1200 ml 1000 ml # Bowel Movements 0 0 Result Diagram: 01/15/17 0452 01/13/17 0550 Imaging Last Impressions Chest X-Ray 01/10/17 1123 Signed Impressions: Service Date/Time: Tuesday, January 10, 2017 11:53 - CONCLUSION: 1. Cardiomegaly and findings of congestive heart failure. Iirneo Kapoor MD Lung Scan-VQ Nuclear Medicine 01/10/17 0000 Signed Impressions: Service Date/Time: Tuesday, January 10, 2017 15:12 - CONCLUSION: Low probability scan for pulmonary embolism Kavin Quiñones MD Objective Remarks GENERAL: This is a well-nourished, well-developed patient, in no apparent distress. SKIN: Warm and dry. HEENT: Normocephalic. Pupils equal round and reactive. Nose without bleeding. Airway patent. NECK: Trachea midline. No JVD. Supple. CARDIOVASCULAR: Regular rate and rhythm without murmurs, gallops, or rubs. RESPIRATORY: Clear to auscultation. Breath sounds equal bilaterally. No wheezes , rales, or rhonchi. GASTROINTESTINAL: Abdomen soft, non-tender, nondistended. Bowel Sounds normoactive x4. MUSCULOSKELETAL: Extremities without clubbing, cyanosis, or edema. NEUROLOGICAL: Awake and alert. Oriented to time, place, person. No focal neuro deficit. Moves all extremities. Normal speech. Procedures None A/P Problem List: (1) Acute systolic CHF (congestive heart failure) ICD Code: I50.21 - Acute systolic (congestive) heart failure (2) Elevated troponin ICD Code: R74.8 - Abnormal levels of other serum enzymes Status: Acute (3) Atrial fibrillation with RVR ICD Code: I48.91 - Unspecified atrial fibrillation Status: Acute Assessment and Plan Patient is a 51-year-old male with a past medical history of TBI who presented for shortness of breath. A. fib RVR - On heparin drip, DC now - [id number] score 1 - Will DC with Cardizem 240mg daily, ASA 81 mg Acute systolic CHF - EF 25-30% - Lasix twice a day 20 mg - Start lisinopril 2.5mg NSTEMI - Start statin and theodore inhibitor as per cardiology recommendation. Tobacco abuse, COPD - Atrovent inhaler when necessary - Counseled to quit smoking. - Nicotine patch. DVT prop ambulatory, heparin drip This note was transcribed by marcelino Lopez. I, Dr. Po Blue personally performed the history, physical exam, and medical decision making; and confirmed the accuracy of the information in the transcribed note. Authenticated by Dr. Po Blue on 01/15/17 at 10:09. Discharge Planning Plan to DC home today. Discuss with patient follow-up visit for PCP and cardiology. Discuss medication management. Isa Parra Jan 15, 2017 10:09 Po Blue MD Jan 15, 2017 10:10
[2017-01-15] MEDS ORDERED: ASPI-99 PO (10:18)
[2017-01-15] MEDS ORDERED: DILT1TAB2 PO (10:18)
[2017-01-15] MEDS ORDERED: LISI-519 PO (10:18)
[2017-01-15] MEDS ORDERED: FURO20TA PO (10:18)
[2017-01-15] MEDS ORDERED: POTA20TA5 PO (10:18)
[2017-01-15] MEDS ORDERED: PILL SPLITTER OTHER PRN (10:30)
[2017-01-15] MEDS ORDERED: DILTIAZEM-CD 240 MG CAP ER PO ONE (10:30)
[2017-01-15] MEDS ORDERED: LIPI10TA PO (11:41)
--- NOTE | 2017-01-15 11:42 | HHI.DS ---
Discharge Summary Admission Date Jan 10, 2017 at 15:40 Discharge Date: Jan 15, 2017 Admitting Diagnosis new onset a fib on RVR, CHF, positive troponin (1) Acute systolic CHF (congestive heart failure) ICD Code: I50.21 - Acute systolic (congestive) heart failure (2) Elevated troponin ICD Code: R74.8 - Abnormal levels of other serum enzymes Status: Acute (3) Atrial fibrillation with RVR ICD Code: I48.91 - Unspecified atrial fibrillation Status: Acute Procedures None Brief History - From Admission Written by Des Barclay, acting as scribe for Dr. Haley on 01/10/17 at 16:38. 51-year-old male with a past medical history of TBI who presented for shortness of breath. The patient has been having shortness of breath for 2 weeks. He states she's been taking several [id number] medications including decongestants because he thought he had a cold or walking pneumonia. He states the shortness breath is worse whenever he lies down and better whenever he sits up. He states his heart rate was fast today and now that his heart rate is a little better the shortness breath is better as well. He complains of chest tightness like a rubber band is around his chest. He complains of some mild pain with breathing that is improved some now that his heart rate is better. He has been having fever, chills, dry heaves, and a small amount of diarrhea. He's been having leg swelling for the past 2 weeks as well. The patient was found to have new onset atrial fibrillation with RVR in the ED and was placed on Cardizem drip and heparin drip. CBC/BMP: 01/15/17 0452 01/13/17 0550 Significant Findings Laboratory Tests Test 01/12/17 20:00 01/13/17 05:50 01/13/17 09:27 01/13/17 18:00 Activated Partial Thromboplast Time 30.4 SEC (24.3-30.1) 35.4 SEC (24.3-30.1) 38.0 SEC (24.3-30.1) Red Blood Count 4.40 MIL/MM3 (4.50-5.90) Mean Corpuscular Volume 100.6 FL (80.0-100.0) Blood Urea Nitrogen 19 MG/DL (7-18) Estimat Glomerular Filtration Rate 79 ML/MIN (>89) Test 01/14/17 01:35 01/14/17 08:17 01/15/17 04:19 01/15/17 04:52 Activated Partial Thromboplast Time 47.3 SEC (24.3-30.1) 43.4 SEC (24.3-30.1) 43.9 SEC (24.3-30.1) Mean Corpuscular Volume 101.0 FL (80.0-100.0) Imaging Last Impressions Chest X-Ray 01/10/17 1123 Signed Impressions: Service Date/Time: Tuesday, January 10, 2017 11:53 - CONCLUSION: 1. Cardiomegaly and findings of congestive heart failure. Irineo Kapoor MD Lung Scan- Nuclear Medicine 01/10/17 0000 Signed Impressions: Service Date/Time: Tuesday, January 10, 2017 15:12 - CONCLUSION: Low probability scan for pulmonary embolism Kavin Quiñones MD PE at Discharge GENERAL: This is a well-nourished, well-developed patient, in no apparent distress. SKIN: Warm and dry. HEENT: Normocephalic. Pupils equal round and reactive. Nose without bleeding. Airway patent. NECK: Trachea midline. No JVD. Supple. CARDIOVASCULAR: Regular rate and rhythm without murmurs, gallops, or rubs. RESPIRATORY: Clear to auscultation. Breath sounds equal bilaterally. No wheezes , rales, or rhonchi. GASTROINTESTINAL: Abdomen soft, non-tender, nondistended. Bowel Sounds normoactive x4. MUSCULOSKELETAL: Extremities without clubbing, cyanosis, or edema. NEUROLOGICAL: Awake and alert. Oriented to time, place, person. No focal neuro deficit. Moves all extremities. Normal speech. Hospital Course A. fib RVR - On heparin drip, DC now - [id number] score 1 - Will DC with Cardizem 240mg daily, ASA 81 mg Acute systolic CHF - EF 25-30% - Lasix twice a day 20 mg - Start lisinopril 2.5mg NSTEMI - Start statin and theodore inhibitor as per cardiology recommendation. Tobacco abuse, COPD - Atrovent inhaler when necessary - Counseled to quit smoking. - Nicotine patch. DVT prop ambulatory, heparin drip Pt Condition on Discharge: Stable Discharge Disposition: Discharge Home Discharge Time: <= 30 minutes Discharge Instructions DIET: Follow Instructions for: Heart Healthy Diet Activities you can perform: Regular-No Restrictions Follow up Referrals: Cardiology PCP Follow-up - 2 Weeks New Medications: Atorvastatin (Lipitor) 10 Mg Tab 10 MG PO HS for Cholesterol Management, #30 TAB 0 Refills Diltiazem ER 24 HR (Cardizem LA) 240 Mg Tricia 240 MG PO DAILY for Regulate Heart Beat, #30 TAB [address] (Adult Aspirin EC Low Strength) 81 Mg Tabec 81 MG PO DAILY for Prevent Blood Clot, #30 TAB Furosemide (Furosemide) 20 Mg Tab 20 MG PO BID@09,18 for Prevent Heart Failure, #60 TAB 11 Refills Lisinopril (Lisinopril) 5 Mg Tab 2.5 MG PO DAILY for Regulate Heart Beat, #30 TAB 11 Refills Potassium Chloride Microencaps (Potassium Chloride Microencaps) 20 Meq Tab 20 MEQ PO Q12HR for Electrolyte Replacement, #60 TAB Po Blue MD Jan 15, 2017 11:42
[2017-01-16] MEDS ORDERED: LISINOPRIL 5 MG TAB PO SCH (09:00)
[2017-01-16] MEDS ORDERED: ASPIRIN EC 81 MG TABEC PO SCH (09:00)
== END 2017-01-15 17:00 | disposition home or self-care (01) | DRG 280 ==
LOC: NEPE 11:11 → NEDA 15:40 → HCIN 18:08
PROVIDERS: ADMIT Hospitalist; ATTEND Hospitalist
DX: I48.91 Unspecified atrial fibrillation (principal); I50.21 Acute systolic (congestive) heart failure; I21.4 Non-ST elevation (NSTEMI) myocardial infarction; Z87.820 Personal history of traumatic brain injury; M79.89 Other specified soft tissue disorders; J44.9 Chronic obstructive pulmonary disease, unspecified; F17.210 Nicotine dependence, cigarettes, uncomplicated; Z91.041 Radiographic dye allergy status; Z23 Encounter for immunization
CPT/HCPCS: 71020; 78582; 80048; 80053; 82272; 82550; 82552; 83880; 84443; 84484; 85025; 85027; 85610; 85730; 90686; 90732; 93005; 93306; 94640; 94664; 96365; 96366; 96368; 96375; A9540; A9567; J1644; J1940; Q2038

== ENCOUNTER 2017-01-30 17:57 | Inpatient (IN) | payer OTHER ==
[~2017-01-30] VITALS: Ht 180.3 cm; Wt 90.0 kg
[~2017-01-30 17:57] MED LIST changes: +ASPI-99 PO; -CLIN1CAP6 PO; +DILT1TAB2 PO; +FURO20TA PO; -HYDR-3580 PO; +LIPI10TA PO; +LISI-519 PO; -LORTA5 PO; -MELO15 PO; -NAPR500 PO; +POTA20TA5 PO
[2017-01-30 18:01] VITALS: PULSE 118; RESP 16; TEMP 98.3; O2SAT 97
[2017-01-30] MEDS ORDERED: DILTIAZEM HCL 25 MG/5 ML VIAL IV ONE (18:30)
[2017-01-30] MEDS ORDERED: FUROSEMIDE 40 MG/4 ML VIAL IV PUSH ONE (18:30)
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
--- NOTE | 2017-01-30 19:07 | RADRPT ---
EXAM DATE/TIME: 01/30/2017 18:25 [place] COMPARISON: CHEST PA & LAT, January 10, 2017, 11:53. INDICATIONS : Chest pain ,short of breath. MEDICAL HISTORY : None. SURGICAL HISTORY : None. ENCOUNTER: Initial ACUITY: 1 day PAIN SCORE: 0/10 LOCATION: Bilateral chest FINDINGS: Compare January 10. Cardiomegaly present with no consolidation. Mild vascular congestion pattern. No s ignificant effusion. No pneumothorax. CONCLUSION: 1. Cardiomegaly with vascular congestion pattern but without airspace disease or significant effusion . Mookie Costa MD on January 30, 2017 at 19:04 Board Certified Radiologist. This report was verified electronically.
[2017-01-30 19:25] LABS: AUTOMATED NEUTROPHIL # 4.5 TH/MM3 (1.8-7.7); BASOPHIL # 0.1 TH/MM3 (0-0.2); BASOPHIL % 0.8 % (0.0-2.0); EOSINOPHIL # 0.2 TH/MM3 (0-0.4); HEMATOCRIT 47.3 % (39.0-51.0); HEMO FLAGS DIFF FINAL; LYMPH % 31.4 % (9.0-44.0); LYMPHOCYTE # 2.5 TH/MM3 (1.0-4.8); MEAN CELL VOLUME 98.9 FL (80.0-100.0); MEAN CORPUSCULAR HEMOGLOBIN 32.7 PG (27.0-34.0); MEAN CORPUSCULAR HGB CONC 33.1 % (32.0-36.0); MONO % 8.3 % (0.0-8.0); NEUT % 57.5 % (16.0-70.0); PLATELET COUNT 242 TH/MM3 (150-450); RED BLOOD COUNT 4.78 MIL/MM3 (4.50-5.90); RED CELL DISTRIBUTION WIDTH 15.9 % (11.6-17.2); WHITE BLOOD COUNT 7.8 TH/MM3 (4.0-11.0)
[2017-01-30 19:37] LABS: APTT (PATIENT) 29.7 SEC (24.3-30.1); INTERNATIONAL NORMALIZED RATIO 1.1 RATIO; PROTHROMBIN TIME - PATIENT 11.7 SEC (9.8-11.6)
[2017-01-30 19:39] VITALS: BP 119/86; PULSE 109; RESP 22; O2SAT 95
[2017-01-30 19:43] LABS: ANION GAP 8 MEQ/L (5-15); BICARBONATE 24.3 MEQ/L (21.0-32.0); CHLORIDE 108 MEQ/L (98-107); GLOMERULAR FILTRATION RATE 95 ML/MIN (>89); MAGNESIUM 1.8 MG/DL (1.5-2.5); SODIUM (NA) 140 MEQ/L (136-145)
[2017-01-30 19:50] LABS: BLOOD UREA NITROGEN 14 MG/DL (7-18); CREATINE KINASE 132 U/L (39-308)
[2017-01-30 20:02] LABS: CKMB 3.5 NG/ML (0.5-3.6)
[2017-01-30] MEDS ORDERED: ONDANSETRON HCL 4 MG/2 ML VIAL IVP PRN (20:30)
[2017-01-30] MEDS ORDERED: MAGNESIUM HYDROXIDE SUSP 30 ML CUP PO PRN (20:30)
[2017-01-30] MEDS ORDERED: SODIUM CHLORIDE 0.9% FLUSH 10 ML FLUSH IV FLUSH PRN (20:30)
[2017-01-30] MEDS ORDERED: SENNOSIDES 8.6 MG TAB PO PRN (20:30)
[2017-01-30] MEDS ORDERED: LACTULOSE SYRUP 20 GM/30 ML CUP PO PRN (20:30)
[2017-01-30] MEDS ORDERED: BISACODYL 10 MG SUPP RECTAL PRN (20:30)
--- NOTE | 2017-01-30 20:36 | HHI.HP ---
HPI Service [facility] Primary Care Physician Unknown Admission Diagnosis Diagnoses: (1) Atrial fibrillation with RVR Diagnosis: Principal (2) CHF (congestive heart failure) Diagnosis: Principal (3) Non-compliance Diagnosis: Principal (4) Alcohol abuse Diagnosis: Principal (5) Tobacco abuse Diagnosis: Principal Travel History International Travel<30 Days: No Contact w/Intl Traveler <30 Da: No Traveled to Known Affected Are: No History of Present Illness This is a 51-year-old male with PMH of HTN, A. fib, CHF (Echo 01/11/17 w/ EF 25- 35%, Grade 2 Diastolic Dysfxn), Alcohol Abuse, Tobacco Abuse and Noncompliance was brought to the ER secondary to complaints of chest pain and SOB. Found to be in A-fib w/ RVR, HR 120's. Recent admit 01/10-01/15/17 for same, found to have New-Onset Afib and CHF w/ elevated troponin, s/p eval by Cardiology w/ recommendation for medical management. Was d/c'd home w/ Diltiazem, Lisinopril , Lasix and Statin, however pt non-compliant w/ medications. States he attempted to get patient assistance but was unable to. S/p Cardizem by EMS, additional dose of Cardizem IV in ER, ultimately started on Cardizem gtt for persistent Afib w/ RVR. CBC unremarkable. Chemistry essentially remarkable. Troponin negative. BNP 724. INR 1.1. CXR with cardiomegaly and vascular congestion, no airspace disease. S/p Lasix in ER. Review of Systems Except as stated in HPI: all other systems reviewed are Neg ROS: 14 point review of systems otherwise negative. Past Family Social History Past Medical History PMH: HTN, A. fib, CHF (Echo 01/11/17 w/ EF 25-35%, Grade 2 Diastolic Dysfxn), Alcohol Abuse, Tobacco Abuse and Noncompliance Past Surgical History PAST SURGICAL HISTORY: Bladder Surgery Allergies: Coded Allergies: Fish Containing Products (Unverified Allergy, Severe, RASH, 01/10/17) codeine (Unverified Allergy, Severe, RASH, 01/10/17) iodine (Unverified Allergy, Severe, RASH, 01/10/17) potassium iodide (Unverified Allergy, Severe, RASH, 01/10/17) povidone-iodine (Unverified Allergy, Severe, RASH, 01/10/17) sodium iodide (Unverified Allergy, Severe, RASH, 01/10/17) sodium iodide (Unverified Allergy, Severe, RASH, 01/10/17) *MDRO Multi-Drug Resistant Organism (Unverified Adverse Reaction, Unknown , 01/10/17) MRSA Family History PAST FAMILY HISTORY: Reviewed. No h/o DM or CAD Social History PAST SOCIAL HISTORY: Drinks daily 4-6 beers. Smokes 1-2 ppd. Negative for drugs. Physical Exam Vital Signs Vital Signs Date Time Temp Pulse Resp B/P (MAP) Pulse Ox O2 Delivery O2 Flow Rate FiO2 01/30/17 19:39 109 22 119/86 (97) 95 Room Air 01/30/17 18:10 124 94 01/30/17 18:01 98.3 118 16 97 Physical Exam PE: GENERAL: Middle-aged male in no acute distress. HEENT: PERRLA, EOMI. No scleral icterus or conjunctival pallor. No lid lag or facial droop. CARDIOVASCULAR: Irregularly irregular, in A. fib. No obvious murmurs to auscultation. No chest tenderness to palpation. RESPIRATORY: No obvious rhonchi or wheezing. Clear to auscultation. Breath sounds equal bilaterally. GASTROINTESTINAL: Abdomen soft, non-tender, nondistended. BS normal. MUSCULOSKELETAL: Extremities without clubbing, cyanosis, or edema. No obvious deformities. NEUROLOGICAL: Awake, alert and oriented x4. No focal neurologic deficits. Moving both upper and lower extremities spontaneously. Laboratory Laboratory Tests Test 01/30/17 18:35 White Blood Count 7.8 Red Blood Count 4.78 Hemoglobin 15.6 Hematocrit 47.3 Mean Corpuscular Volume 98.9 Mean Corpuscular Hemoglobin 32.7 Mean Corpuscular Hemoglobin Concent 33.1 Red Cell Distribution Width 15.9 Platelet Count 242 Mean Platelet Volume 8.6 Neutrophils (%) (Auto) 57.5 Lymphocytes (%) (Auto) 31.4 Monocytes (%) (Auto) 8.3 Eosinophils (%) (Auto) 2.0 Basophils (%) (Auto) 0.8 Neutrophils # (Auto) 4.5 Lymphocytes # (Auto) 2.5 Monocytes # (Auto) 0.6 Eosinophils # (Auto) 0.2 Basophils # (Auto) 0.1 CBC Comment DIFF FINAL Differential Comment Prothrombin Time 11.7 Prothromb Time International Ratio 1.1 Activated Partial Thromboplast Time 29.7 Blood Urea Nitrogen 14 Creatinine 0.86 Random Glucose 114 Calcium Level 9.3 Magnesium Level 1.8 Sodium Level 140 Potassium Level 4.0 Chloride Level 108 Carbon Dioxide Level 24.3 Anion Gap 8 Estimat Glomerular Filtration Rate 95 Total Creatine Kinase 132 Creatine Kinase MB 3.5 Troponin I 0.03 B-Type Natriuretic Peptide 724 Thyroid Stimulating Hormone 3rd Gen 1.090 Result Diagram: 01/30/17183401/30/171834 Karyn VTE Risk Assessment Karyn VTE Risk Assessment: No/Low Risk (score <= 1) Caprini Risk Assessment Model Point Value = 1 Point Value = 2 Point Value = 3 Point Value = 5 Age 41-60 Minor surgery BMI > 25 kg/m2 Swollen legs Varicose veins or History of unexplained or recurrent spontaneous Oral contraceptives or hormone replacement Sepsis (< 1 month) Serious lung disease, including pneumonia (< 1 month) Abnormal pulmonary function Acute myocardial infarction Congestive heart failure (< 1 month) History of inflammatory bowel disease Medical patient at bed rest Age 61-74 Arthroscopic surgery Major open surgery (> 45 min) Laparoscopic surgery (> 45 min) Malignancy Confined to bed (> 72 hours) Immobilizing plaster cast Central venous access Age >= 75 History of VTE Family history of VTE Factor V Leiden Prothrombin [id number] Lupus anticoagulant Anticardiolipin antibodies Elevated serum homocysteine Heparin-induced thrombocytopenia Other congenital or acquired thrombophilia Stroke (< 1 month) Elective arthroplasty Hip, pelvis, or leg fracture Acute spinal cord injury (< 1 month) Prophylaxis Regimen Total Risk Factor Score Risk Level Prophylaxis Regimen 0-1 Low Early ambulation 2 Moderate Order ONE of the following: *Sequential Compression Device (SCD) *Heparin 5000 units SQ BID 3-4 Higher Order ONE of the following medications: *Heparin 5000 units SQ TID *Enoxaparin/Lovenox 40 mg SQ daily (WT < 150 kg, CrCl > 30 mL/min) *Enoxaparin/Lovenox 30 mg SQ daily (WT < 150 kg, CrCl > 10-29 mL/min) *Enoxaparin/Lovenox 30 mg SQ BID (WT < 150 kg, CrCl > 30 mL/min) AND/OR *Sequential Compression Device (SCD) 5 or more Highest Order ONE of the following medications: *Heparin 5000 units SQ TID (Preferred with Epidurals) *Enoxaparin/Lovenox 40 mg SQ daily (WT < 150 kg, CrCl > 30 mL/min) *Enoxaparin/Lovenox 30 mg SQ daily (WT < 150 kg, CrCl > 10-29 mL/min) *Enoxaparin/Lovenox 30 mg SQ BID (WT < 150 kg, CrCl > 30 mL/min) AND *Sequential Compression Device (SCD) Assessment and Plan Problem List: (1) Atrial fibrillation with RVR ICD Code: I48.91 - Unspecified atrial fibrillation Status: Acute (2) CHF (congestive heart failure) ICD Code: I50.9 - Heart failure, unspecified Status: Acute (3) Non-compliance ICD Code: Z91.19 - Patient's noncompliance with other medical treatment and regimen (4) Alcohol abuse ICD Code: F10.10 - Alcohol abuse, uncomplicated (5) Tobacco abuse ICD Code: Z72.0 - Tobacco use Assessment and Plan A/P: 1. A-fib: w/ RVR, recent admit 01/11-01/15/17 diagnosed w/ A-fib, noncompliant w / meds, now w/ A-fib w/ RVR, HR 120's, s/p Cardizem IV x2 w/ no improvement, currently on Cardizem gtt. Admit to [facility], continue Cardizem gtt, resume home medications. 2. CHF: Acute on Chronic. Systolic and Diastolic. Echo 01/11/17 w/ EF 25-30% , Grade 2 Diastolic Dysfunction. BNP 724. CXR w/ pulmonary vascular congestion. S/p Lasix 40mg IV in ER, will continue w/ IV Lasix. Monitor I/O. 3. Non-Compliance: recent admit, d/c'd w/ Cardizem, Lisinopril, Lasix however states unable to obtain patient assistance and can't afford medications. Case Management consult. 4. Alcohol Abuse: Drinks 4-6 beers daily, high risk for withdrawal, CIWA, Seizure Precautions, MVT/Thiamine/Folate replacement. 5. Tobacco Abuse: Counselled. Ativan prn. 6. DVT Prophylaxis: SCD/Teds. 7. Social work for d/c planning as needed. 8. Case discussed w/ ER physician at length. Physician Certification 2 Midnight Certification Type: Admission for Inpatient Services Order for Inpatient Services The services are ordered in accordance with Medicare regulations or non- Medicare payer requirements, as applicable. In the case of services not specified as inpatient-only, they are appropriately provided as inpatient services in accordance with the 2-midnight benchmark. Estimated LOS (days): 2 days is the estimated time the patient will need to remain in the hospital, assuming treatment plan goals are met and no additional complications. Post-Hospital Plan: Not yet determined Conchita Castillo MD Jan 30, 2017 20:36
[2017-01-30] MEDS: DOCUSATE SODIUM 50 MG/SENNA 8.6 MG TAB PO SCH (21:00)
[2017-01-30] MEDS ORDERED: PILL SPLITTER OTHER PRN (21:00)
[2017-01-30] MEDS: DILTIAZEM INJ 125 MG in SODIUM CHLORIDE 0.9% INJ 100 ML IV PRN (21:43)
[2017-01-30 21:44] VITALS: BP 133/94; PULSE 117; RESP 18; TEMP 98.1; O2SAT 95
[2017-01-30] MEDS: SODIUM CHLORIDE 0.9% FLUSH 10 ML FLUSH IV FLUSH SCH (21:44)
[2017-01-30 21:48] VITALS: PULSE 125
[2017-01-30] MEDS: ATORVASTATIN 10 MG TAB PO SCH (21:49)
[2017-01-30] MEDS: ACETAMINOPHEN 325 MG TAB PO PRN (21:49)
[2017-01-30 22:00] VITALS: PULSE 128
[2017-01-30 23:00] VITALS: BP 119/64; PULSE 122; PULSE 126; RESP 18; O2SAT 96
[2017-01-30] MEDS ORDERED: LORazepam 2 MG TAB PO PRN (23:30)
[2017-01-30] MEDS ORDERED: LORazepam 2 MG/ML VIAL IV PUSH PRN ×4 (23:30)
[2017-01-30] MEDS ORDERED: FLUMAZENIL 0.5 MG/5 ML VIAL IV PUSH PRN (23:30)
[2017-01-30] MEDS ORDERED: HALOPERIDOL LACTATE 5 MG/ML AMP IM PRN (23:30)
[2017-01-30] MEDS ORDERED: LORazepam 1 MG TAB PO PRN (23:30)
[2017-01-31] VITALS (29 sets, daily range): BP systolic 104–125; BP diastolic 54–75; PULSE 71–124; RESP 16–20; TEMP 97.4–98.7; O2SAT 93–96
[2017-01-31] MEDS: DILTIAZEM INJ 125 MG in SODIUM CHLORIDE 0.9% INJ 100 ML IV PRN ×2 (05:51→21:21)
[2017-01-31 07:02] LABS: AUTOMATED NEUTROPHIL # 3.4 TH/MM3 (1.8-7.7); BASOPHIL # 0.1 TH/MM3 (0-0.2); BASOPHIL % 0.9 % (0.0-2.0); EOSINOPHIL # 0.3 TH/MM3 (0-0.4); EOSINOPHIL % 4.5 % (0.0-4.0); HEMATOCRIT 48.4 % (39.0-51.0); HEMO FLAGS DIFF FINAL; LYMPH % 38.9 % (9.0-44.0); LYMPHOCYTE # 2.8 TH/MM3 (1.0-4.8); MEAN CELL VOLUME 99.6 FL (80.0-100.0); MEAN CORPUSCULAR HEMOGLOBIN 33.3 PG (27.0-34.0); MEAN CORPUSCULAR HGB CONC 33.4 % (32.0-36.0); MONO % 9.1 % (0.0-8.0); NEUT % 46.6 % (16.0-70.0); PLATELET COUNT 236 TH/MM3 (150-450); RED BLOOD COUNT 4.86 MIL/MM3 (4.50-5.90); WHITE BLOOD COUNT 7.3 TH/MM3 (4.0-11.0)
[2017-01-31 07:31] LABS: ANION GAP 11 MEQ/L (5-15); AST (GOT) 35 U/L (15-37); BICARBONATE 27.3 MEQ/L (21.0-32.0); BLOOD UREA NITROGEN 16 MG/DL (7-18); CHLORIDE 105 MEQ/L (98-107); GLOMERULAR FILTRATION RATE 106 ML/MIN (>89); POTASSIUM 3.6 MEQ/L (3.5-5.1); SODIUM (NA) 143 MEQ/L (136-145)
[2017-01-31 07:35] LABS: ALKALINE PHOSPHATASE 68 U/L (45-117); ALT (GPT) 50 U/L (12-78)
[2017-01-31] MEDS: SODIUM CHLORIDE 0.9% FLUSH 10 ML FLUSH IV FLUSH SCH ×2 (08:43→21:16)
[2017-01-31] MEDS: FOLIC ACID 1 MG TAB PO SCH (08:43)
[2017-01-31] MEDS: THIAMINE HCL 100 MG TAB PO SCH (08:43)
[2017-01-31] MEDS: DOCUSATE SODIUM 50 MG/SENNA 8.6 MG TAB PO SCH ×2 (08:43→21:00)
[2017-01-31] MEDS: MULTIVITAMINS/MINERALS THERAPEUTIC TAB PO SCH (08:43)
[2017-01-31] MEDS: FUROSEMIDE 40 MG/4 ML VIAL IV PUSH SCH ×2 (08:44→17:20)
[2017-01-31] MEDS: LISINOPRIL 5 MG TAB PO SCH (08:44)
[2017-01-31] MEDS: ASPIRIN EC 81 MG TABEC PO SCH (08:44)
--- NOTE | 2017-01-31 09:04 | HHI.PR ---
Subjective Remarks Follow-up A. denise with RVR/acute on chronic systolic CHF 01/31/17-patient seen and examined, denies any shortness of breath currently HR< 100 however BP soft. Patient states, he did not fill out his medication as prescribed during his last hospitalization Objective Vitals Vital Signs Date Time Temp Pulse Resp B/P (MAP) Pulse Ox O2 Delivery O2 Flow Rate FiO2 01/31/17 08:40 82 131/90 01/31/17 06:00 84 01/31/17 05:51 78 01/31/17 05:00 80 01/31/17 04:22 78 18 122/65 (84) 96 01/31/17 04:20 78 122/65 01/31/17 04:00 90 01/31/17 03:00 88 01/31/17 02:00 100 01/31/17 01:00 114 01/31/17 01:00 108 126/67 01/31/17 00:00 112 01/30/17 23:00 122 18 119/64 (82) 96 01/30/17 23:00 122 119/64 01/30/17 23:00 126 01/30/17 22:00 128 01/30/17 21:48 125 01/30/17 21:44 98.1 117 18 133/94 (107) 95 01/30/17 21:43 117 133/94 01/30/17 21:23 01/30/17 19:39 109 22 119/86 (97) 95 Room Air 01/30/17 18:10 124 94 01/30/17 18:01 98.3 118 16 97 I/O 01/30/17 01/30/17 01/30/17 01/31/17 01/31/17 01/31/17 07:00 15:00 23:00 07:00 15:00 23:00 Intake Total 425 ml Balance 425 ml Intake Oral 300 ml IV Total 125 ml # Voids 2 # Bowel Movements 0 Result Diagram: 01/31/1750401/31/17 050 Imaging Last Impressions Chest X-Ray 01/30/171812 Signed Impressions: Service Date/Time: Monday, January 30, 2017 18:25 - CONCLUSION: 1. Cardiomegaly with vascular congestion pattern but without airspace disease or significant effusion. Mookie Costa MD Objective Remarks GENERAL: NAD SKIN: Warm and dry. HEAD: Normocephalic. EYES: No scleral icterus. No injection or drainage. NECK: Supple, trachea midline. No JVD or lymphadenopathy. CARDIOVASCULAR: Regular rate and rhythm without murmurs, gallops, or rubs. RESPIRATORY: Breath sounds equal bilaterally. No accessory muscle use. GASTROINTESTINAL: Abdomen soft, non-tender, nondistended. MUSCULOSKELETAL: No cyanosis, or edema. BACK: Nontender without obvious deformity. No CVA tenderness. A/P Problem List: (1) Atrial fibrillation with RVR ICD Code: I48.91 - Unspecified atrial fibrillation Status: Acute (2) CHF (congestive heart failure) ICD Code: I50.9 - Heart failure, unspecified Status: Acute (3) Non-compliance ICD Code: Z91.19 - Patient's noncompliance with other medical treatment and regimen (4) Alcohol abuse ICD Code: F10.10 - Alcohol abuse, uncomplicated (5) Tobacco abuse ICD Code: Z72.0 - Tobacco use Assessment and Plan 51-year-old man with 1. A-fib: w/ RVR, recent admit 01/11-01/15/17 diagnosed w/ A-fib, noncompliant w/ meds, currently on Cardizem gtt..... Transition to by mouth Cardizem and resume aspirin [id number] score of 1 2. CHF: Acute on Chronic. Systolic and Diastolic. Echo 01/11/17 w/ EF 25-30%, Grade 2 Diastolic Dysfunction. CXR w/ pulmonary vascular congestion. continue w/ IV Lasix. Monitor I/O. May benefit from Entresto; however cost of the medication may be an issue 3. Non-Compliance: recent admit, d/c'd w/ Cardizem, Lisinopril, Lasix however states unable to obtain patient assistance and can't afford medications. 4. Alcohol Abuse: Drinks 4-6 beers daily, high risk for withdrawal, CIWA, Seizure Precautions, MVT/Thiamine/Folate replacement. 5. Tobacco Abuse: Counselled. Ativan prn. 6. DVT Prophylaxis: SCD/Teds. Po Blue MD Jan 31, 2017 09:04
--- NOTE | 2017-01-31 10:25 | EKG ---
Date Performed: 01/30/2017 Time Performed: 18:44:04 PTAGE: 51 years EKG: ATRIAL FIBRILLATION WITH RAPID VENTRICULAR RESPONSE BORDERLINE RIGHT AXIS DEVIATION NONSPEC IFIC T-WAVE ABNORMALITY ABNORMAL RHYTHM ECG Compared to prior tracing no significant change PREVIOUS TRACING : 01/10/2017 12.54 DOCTOR: Reuben Dawson Interpretating Date/Time 01/31/2017 10:24:24
[2017-01-31] MEDS: ACETAMINOPHEN 325 MG TAB PO PRN (15:31)
[2017-01-31] MEDS: ATORVASTATIN 10 MG TAB PO SCH (21:16)
[2017-01-31] MEDS: POTASSIUM CHLORIDE 20 MEQ CONTROLLED RELEASE TAB PO SCH (21:49)
[2017-02-01] VITALS (27 sets, daily range): BP systolic 96–115; BP diastolic 47–68; PULSE 64–104; RESP 18–20; TEMP 97.7–98.6; O2SAT 93–97
[2017-02-01] MEDS: ACETAMINOPHEN 325 MG TAB PO PRN ×2 (00:23→19:55)
[2017-02-01 06:22] LABS: POTASSIUM 3.5 MEQ/L (3.5-5.1)
[2017-02-01] MEDS: FOLIC ACID 1 MG TAB PO SCH (09:00)
[2017-02-01] MEDS: DOCUSATE SODIUM 50 MG/SENNA 8.6 MG TAB PO SCH ×2 (09:00→19:55)
[2017-02-01] MEDS ORDERED: ASPIRIN EC 81 MG TABEC PO SCH (09:00)
[2017-02-01] MEDS: SODIUM CHLORIDE 0.9% FLUSH 10 ML FLUSH IV FLUSH SCH ×2 (09:00→19:55)
[2017-02-01] MEDS: DILTIAZEM-CD 240 MG CAP ER PO SCH (09:24)
[2017-02-01] MEDS: THIAMINE HCL 100 MG TAB PO SCH (09:24)
[2017-02-01] MEDS: POTASSIUM CHLORIDE 20 MEQ CONTROLLED RELEASE TAB PO SCH ×2 (09:24→19:55)
[2017-02-01] MEDS: LISINOPRIL 5 MG TAB PO SCH (09:25)
[2017-02-01] MEDS: ASPIRIN EC 81 MG TABEC PO SCH (09:25)
[2017-02-01] MEDS: MULTIVITAMINS/MINERALS THERAPEUTIC TAB PO SCH (09:25)
[2017-02-01] MEDS: FUROSEMIDE 40 MG/4 ML VIAL IV PUSH SCH ×2 (09:26→17:50)
--- NOTE | 2017-02-01 12:06 | HHI.PR ---
Subjective Remarks Follow-up for atrial fibrillation and CHF Patient stated that he has shortness of breathing intermittently. Shortness of breathing mostly with exertion and he feels his heart racing. Denies any chest pain. Discussed with patient's nurse. Objective Vitals Vital Signs Date Time Temp Pulse Resp B/P (MAP) Pulse Ox O2 Delivery O2 Flow Rate FiO2 02/01/17 11:31 98.6 91 18 100/68 (79) 94 02/01/17 11:01 91 02/01/17 10:01 96 02/01/17 09:01 96 02/01/17 08:01 97.7 103 18 106/55 (72) 97 02/01/17 08:00 88 02/01/17 07:01 91 02/01/17 05:00 88 02/01/17 04:00 100 02/01/17 03:15 98.6 67 20 106/68 (81) 96 02/01/17 03:00 98 02/01/17 02:00 82 02/01/17 01:30 14 02/01/17 01:00 84 02/01/17 00:00 86 01/31/17 23:30 83 20 104/74 (84) 96 01/31/17 23:00 84 01/31/17 22:00 84 01/31/17 21:21 76 110/72 01/31/17 21:00 90 01/31/17 20:00 96 01/31/17 19:42 97.4 82 16 125/54 (77) 95 01/31/17 19:00 88 01/31/17 18:00 97 01/31/17 17:21 72 112/55 01/31/17 17:00 78 01/31/17 16:00 82 01/31/17 15:30 98.7 90 20 106/67 (80) 95 01/31/17 15:00 96 01/31/17 14:00 96 01/31/17 13:00 88 I/O 01/31/17 01/31/17 01/31/17 02/01/17 02/01/17 02/01/17 07:00 15:00 23:00 07:00 15:00 23:00 Intake Total 425 ml 680 ml 975 ml Output Total 1400 ml 575 ml Balance 425 ml -720 ml 400 ml Intake Oral 300 ml 680 ml 720 ml IV Total 125 ml 255 ml Output Urine Total 1400 ml 575 ml # Voids 2 1 # Bowel Movements 0 2 Result Diagram: 01/31/17 0505 02/01/17 0422 Objective Remarks GENERAL: in NAD CARDIOVASCULAR: Irregular rate irregular rhythm without murmurs, gallops, or rubs. RESPIRATORY: Breath sounds equal bilaterally. No accessory muscle use. GASTROINTESTINAL: Abdomen soft, non-tender, nondistended. MUSCULOSKELETAL: No cyanosis, or edema. BACK: Nontender without obvious deformity. No CVA tenderness. Medications and IVs Current Medications Diltiazem HCl (Cardizem Inj) 20 mg ONCE ONCE IV Last administered on 18:51; Start 01/30/17 at 18:30; Stop 01/30/17 at 18:31; Status DC Furosemide (Lasix Inj) 40 mg ONCE ONCE IV PUSH Last administered on 18:52; Start 01/30/17 at 18:30; Stop 01/30/17 at 18:31; Status DC Diltiazem HCl 125 mg/Sodium Chloride 125 ml @ 5 mls/hr TITRATE PRN IV Tachycardia Last administered on 01/31/17 21:21; Start 01/30/17 at 19:30; Stop 02/01/17 at 09:14; Status DC Furosemide (Lasix Inj) 40 mg BID@09,18 IV PUSH Last administered on 02/01/17 09:26; Start 01/31/17 at 09:00 Sodium Chloride (NS Flush) 2 ml UNSCH PRN IV FLUSH FLUSH AFTER USING IV ACCESS ; Start 01/30/17 at 20:30 Sodium Chloride (NS Flush) 2 ml BID IV FLUSH Last administered on 02/01/17 09 :00; Start 01/30/17 at 21:00 Ondansetron HCl (Zofran Inj) 4 mg Q6H PRN IVP NAUSEA OR VOMITING; Start at 20:30 Acetaminophen (Tylenol) 650 mg Q6H PRN PO FEVER/PAIN SCALE 1 TO 2 Last administered on 02/01/17 00:23; Start 01/30/17 at 20:30 Morphine Sulfate (Morphine Inj) 2 mg Q3H PRN IV PUSH Pain 6-10; Start at 20:30 Senna/Docusate Sodium (Kiya-Colace) 1 tab BID PO Last administered on 08:43; Start 01/30/17 at 21:00 Magnesium Hydroxide (Milk Of Magnesia Liq) 30 ml Q12H PRN PO Mild constipation ; Start 01/30/17 at 20:30 Sennosides (Senokot) 17.2 mg Q12H PRN PO Moderate constipation; Start at 20:30 Bisacodyl (Dulcolax Supp) 10 mg DAILY PRN RECTAL SEVERE CONSITIPATION; Start 01/30/17 at 20:30 Lactulose (Lactulose Liq) 30 ml DAILY PRN PO SEVERE CONSITIPATION; Start 01/30 at 20:30 Aspirin (Ecotrin Ec) 81 mg DAILY PO Last administered on 02/01/17 09:25; Start 01/31/17 at 09:00 Atorvastatin Calcium (Lipitor) 10 mg HS PO Last administered on 01/31/17 21: 16; Start 01/30/17 at 21:00 Lisinopril (Prinivil) 2.5 mg DAILY PO Last administered on 02/01/17 09:25; Start 01/31/17 at 09:00 Miscellaneous (Pill Splitter) 1 ea UNSCH PRN OTHER SEE LABEL COMMENTS; Start 01/30/17 at 21:00 Folic Acid (Folate) 1 mg DAILY PO Last administered on 02/01/17 09:00; Start 01/31/17 at 09:00; Stop 02/05/17 at 08:59 Thiamine HCl (Vitamin B1) 100 mg DAILY PO Last administered on 02/01/17 09:24 ; Start 01/31/17 at 09:00 Multivitamins/ Minerals Therapeutic (Theragran M Tab) 1 tab DAILY PO Last administered on 02/01/17 09:25; Start 01/31/17 at 09:00; Stop 02/05/17 at 08 :59 Flumazenil (Romazicon Inj) 0.2 mg Q1M PRN IV PUSH SEE LABEL COMMENTS; Start at 23:30 Lorazepam (Ativan) 1 mg Q4H PRN PO CIWA 8 - 10; Start 01/30/17 at 23:30 Lorazepam (Ativan Inj) 1 mg Q4H PRN IV PUSH CIWA 8 - 10; Start 01/30/17 at 23: 30 Lorazepam (Ativan) 2 mg Q2H PRN PO CIWA 11-14; Start 01/30/17 at 23:30 Lorazepam (Ativan Inj) 2 mg Q2H PRN IV PUSH CIWA 11-14; Start 01/30/17 at 23: 30 Lorazepam (Ativan Inj) 2 mg Q1H PRN IV PUSH CIWA 15-20; Start 01/30/17 at 23: 30 Lorazepam (Ativan Inj) 2 mg Q15M PRN IV PUSH CIWA > 20; Start 01/30/17 at 23: 30 Haloperidol Lactate (Haldol Inj) 2 mg Q15M PRN IM SEE LABEL COMMENTS; Start at 23:30 Aspirin (Ecotrin Ec) 81 mg DAILY PO ; Start 02/01/17 at 09:00; Stop 02/01/17 at 09:00; Status DC Diltiazem HCl (Cardizem Cd) 240 mg DAILY PO Last administered on 02/01/17 09: 24; Start 02/01/17 at 09:00 Potassium Chloride (KCl) 20 meq Q12HR PO Last administered on 02/01/17 09:24 ; Start 01/31/17 at 21:00 A/P Problem List: (1) Atrial fibrillation with RVR ICD Code: I48.91 - Unspecified atrial fibrillation Status: Acute (2) CHF (congestive heart failure) ICD Code: I50.9 - Heart failure, unspecified Status: Acute (3) Non-compliance ICD Code: Z91.19 - Patient's noncompliance with other medical treatment and regimen (4) Alcohol abuse ICD Code: F10.10 - Alcohol abuse, uncomplicated (5) Tobacco abuse ICD Code: Z72.0 - Tobacco use Assessment and Plan 51-year-old man with 1. A-fib: w/ RVR -recent admit 01/11-01/15/17 diagnosed w/ A-fib, noncompliant w/ meds, -On oral Cardizem and Cardizem drip. Continues to have RVR especially with exertion. Systolic blood pressure in the lower 100s. May consider metoprolol but will consult apartment leasing consultant for assistance. -[id number] score of 1 CHF: Acute on Chronic. Systolic and Diastolic. -Echo 01/11/17 w/ EF 25-30%, Grade 2 Diastolic Dysfunction. -CXR w/ pulmonary vascular congestion. -Symptoms are improving with Lasix. Continue Lasix. Non-Compliance: -recent admit, d/c'd w/ Cardizem, Lisinopril, Lasix however states unable to obtain patient assistance and can't afford medications. -Case management already consulted. Alcohol Abuse: -Drinks 4-6 beers daily, high risk for withdrawal, CIWA, Seizure Precautions, MVT/Thiamine/Folate replacement. Tobacco Abuse: -Counselled. Ativan prn. DVT Prophylaxis: SCD/Teds. Kaylyn Diaz MD Feb 01, 2017 12:06
[2017-02-01] MEDS ORDERED: CARVEDILOL 3.125 MG TAB PO ONE (13:45)
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
[2017-02-01] MEDS: ATORVASTATIN 10 MG TAB PO SCH (19:55)
[2017-02-01] MEDS: CARVEDILOL 3.125 MG TAB PO SCH (19:55)
[2017-02-01] MEDS: MORPHINE SULFATE 4 MG/ML INJ IV PUSH PRN (21:38)
[2017-02-02] VITALS (27 sets, daily range): BP systolic 87–128; BP diastolic 55–76; PULSE 51–106; RESP 18; TEMP 97.9–98.5; O2SAT 94–98
[2017-02-02] MEDS: MORPHINE SULFATE 4 MG/ML INJ IV PUSH PRN ×3 (05:41→21:51)
[2017-02-02] MEDS: LISINOPRIL 5 MG TAB PO SCH (08:08)
[2017-02-02] MEDS: DILTIAZEM-CD 240 MG CAP ER PO SCH (08:08)
[2017-02-02] MEDS: FOLIC ACID 1 MG TAB PO SCH (08:09)
[2017-02-02] MEDS: POTASSIUM CHLORIDE 20 MEQ CONTROLLED RELEASE TAB PO SCH ×2 (08:09→21:15)
[2017-02-02] MEDS: MULTIVITAMINS/MINERALS THERAPEUTIC TAB PO SCH (08:09)
[2017-02-02] MEDS: CARVEDILOL 3.125 MG TAB PO SCH ×2 (08:09→21:14)
[2017-02-02] MEDS: THIAMINE HCL 100 MG TAB PO SCH (08:09)
[2017-02-02] MEDS: ASPIRIN EC 81 MG TABEC PO SCH (08:09)
[2017-02-02] MEDS: FUROSEMIDE 40 MG/4 ML VIAL IV PUSH SCH ×2 (08:10→18:44)
[2017-02-02] MEDS: SODIUM CHLORIDE 0.9% FLUSH 10 ML FLUSH IV FLUSH SCH ×2 (08:10→21:15)
[2017-02-02] MEDS: DOCUSATE SODIUM 50 MG/SENNA 8.6 MG TAB PO SCH ×2 (08:10→21:00)
--- NOTE | 2017-02-02 11:07 | HHI.PR ---
Subjective Remarks Follow-up for atrial fibrillation with RVR Patient had no complaints. Deny any chest pain, shortness of breathing, palpitation, lightheadedness or dizziness. Discussed with patient's nurse patient is scheduled for cardiac catheterization tomorrow. No events overnight. Objective Vitals Vital Signs Date Time Temp Pulse Resp B/P (MAP) Pulse Ox O2 Delivery O2 Flow Rate FiO2 02/02/17 08:15 98.5 106 18 105/60 (75) 96 02/02/17 07:01 87 02/02/17 06:02 102 02/02/17 05:01 104 02/02/17 04:01 73 02/02/17 03:01 67 02/02/17 03:01 98.0 67 18 128/76 (93) 94 02/02/17 02:01 82 02/02/17 01:01 79 02/02/17 00:03 68 02/01/17 23:01 98.2 76 18 97/64 (75) 93 02/01/17 23:01 76 02/01/17 22:01 79 02/01/17 21:01 72 02/01/17 20:01 74 02/01/17 19:01 98.0 73 18 96/66 (76) 94 02/01/17 19:01 73 02/01/17 18:01 69 02/01/17 17:01 74 02/01/17 16:00 84 02/01/17 15:15 97.9 64 18 115/47 (69) 94 02/01/17 15:01 75 02/01/17 14:00 84 02/01/17 13:01 104 02/01/17 12:00 100 02/01/17 11:31 98.6 91 18 100/68 (79) 94 I/O 02/01/17 02/01/17 02/01/17 02/02/17 02/02/17 02/02/17 07:00 15:00 23:00 07:00 15:00 23:00 Intake Total 975 ml 720 ml 730 ml Output Total 575 ml 1150 ml 650 ml Balance 400 ml -430 ml 80 ml Intake Oral 720 ml 720 ml 480 ml IV Total 255 ml 250 ml Output Urine Total 575 ml 1150 ml 650 ml # Voids 1 4 # Bowel Movements 1 0 Result Diagram: 01/31/17 0505 02/01/17 0422 Objective Remarks GENERAL: in NAD CARDIOVASCULAR: Irregular rate irregular rhythm without murmurs, gallops, or rubs. RESPIRATORY: Breath sounds equal bilaterally. No accessory muscle use. GASTROINTESTINAL: Abdomen soft, non-tender, nondistended. MUSCULOSKELETAL: No cyanosis, or edema. BACK: Nontender without obvious deformity. No CVA tenderness. Medications and IVs Current Medications Diltiazem HCl (Cardizem Inj) 20 mg ONCE ONCE IV Last administered on 18:51; Start 01/30/17 at 18:30; Stop 01/30/17 at 18:31; Status DC Furosemide (Lasix Inj) 40 mg ONCE ONCE IV PUSH Last administered on 18:52; Start 01/30/17 at 18:30; Stop 01/30/17 at 18:31; Status DC Diltiazem HCl 125 mg/Sodium Chloride 125 ml @ 5 mls/hr TITRATE PRN IV Tachycardia Last administered on 01/31/17 21:21; Start 01/30/17 at 19:30; Stop 02/01/17 at 09:14; Status DC Furosemide (Lasix Inj) 40 mg BID@09,18 IV PUSH Last administered on 02/02/17 08:10; Start 01/31/17 at 09:00 Sodium Chloride (NS Flush) 2 ml UNSCH PRN IV FLUSH FLUSH AFTER USING IV ACCESS ; Start 01/30/17 at 20:30 Sodium Chloride (NS Flush) 2 ml BID IV FLUSH Last administered on 02/02/17 08 :10; Start 01/30/17 at 21:00 Ondansetron HCl (Zofran Inj) 4 mg Q6H PRN IVP NAUSEA OR VOMITING; Start at 20:30 Acetaminophen (Tylenol) 650 mg Q6H PRN PO FEVER/PAIN SCALE 1 TO 2 Last administered on 02/01/17 19:55; Start 01/30/17 at 20:30 Morphine Sulfate (Morphine Inj) 2 mg Q3H PRN IV PUSH Pain 6-10 Last administered on 02/02/17 05:41; Start 01/30/17 at 20:30 Senna/Docusate Sodium (Kiya-Colace) 1 tab BID PO Last administered on 08:43; Start 01/30/17 at 21:00 Magnesium Hydroxide (Milk Of Magnesia Liq) 30 ml Q12H PRN PO Mild constipation ; Start 01/30/17 at 20:30 Sennosides (Senokot) 17.2 mg Q12H PRN PO Moderate constipation; Start at 20:30 Bisacodyl (Dulcolax Supp) 10 mg DAILY PRN RECTAL SEVERE CONSITIPATION; Start 01/30/17 at 20:30 Lactulose (Lactulose Liq) 30 ml DAILY PRN PO SEVERE CONSITIPATION; Start 01/30 at 20:30 Aspirin (Ecotrin Ec) 81 mg DAILY PO Last administered on 02/02/17 08:09; Start 01/31/17 at 09:00 Atorvastatin Calcium (Lipitor) 10 mg HS PO Last administered on 02/01/17 19: 55; Start 01/30/17 at 21:00 Lisinopril (Prinivil) 2.5 mg DAILY PO Last administered on 02/02/17 08:08; Start 01/31/17 at 09:00 Miscellaneous (Pill Splitter) 1 ea UNSCH PRN OTHER SEE LABEL COMMENTS; Start 01/30/17 at 21:00 Folic Acid (Folate) 1 mg DAILY PO Last administered on 02/02/17 08:09; Start 01/31/17 at 09:00; Stop 02/05/17 at 08:59 Thiamine HCl (Vitamin B1) 100 mg DAILY PO Last administered on 02/02/17 08:09 ; Start 01/31/17 at 09:00 Multivitamins/ Minerals Therapeutic (Theragran M Tab) 1 tab DAILY PO Last administered on 02/01/17 09:25; Start 01/31/17 at 09:00; Stop 02/05/17 at 08 :59 Flumazenil (Romazicon Inj) 0.2 mg Q1M PRN IV PUSH SEE LABEL COMMENTS; Start at 23:30 Lorazepam (Ativan) 1 mg Q4H PRN PO CIWA 8 - 10; Start 01/30/17 at 23:30 Lorazepam (Ativan Inj) 1 mg Q4H PRN IV PUSH CIWA 8 - 10; Start 01/30/17 at 23: 30 Lorazepam (Ativan) 2 mg Q2H PRN PO CIWA 11-14; Start 01/30/17 at 23:30 Lorazepam (Ativan Inj) 2 mg Q2H PRN IV PUSH CIWA 11-14; Start 01/30/17 at 23: 30 Lorazepam (Ativan Inj) 2 mg Q1H PRN IV PUSH CIWA 15-20; Start 01/30/17 at 23: 30 Lorazepam (Ativan Inj) 2 mg Q15M PRN IV PUSH CIWA > 20; Start 01/30/17 at 23: 30 Haloperidol Lactate (Haldol Inj) 2 mg Q15M PRN IM SEE LABEL COMMENTS; Start at 23:30 Aspirin (Ecotrin Ec) 81 mg DAILY PO ; Start 02/01/17 at 09:00; Stop 02/01/17 at 09:00; Status DC Diltiazem HCl (Cardizem Cd) 240 mg DAILY PO Last administered on 02/02/17 08: 08; Start 02/01/17 at 09:00 Potassium Chloride (KCl) 20 meq Q12HR PO Last administered on 02/02/17 08:09 ; Start 01/31/17 at 21:00 Carvedilol (Coreg) 3.125 mg ONCE ONCE PO Last administered on 02/01/17 13:45 ; Start 02/01/17 at 13:45; Stop 02/01/17 at 14:59; Status DC Carvedilol (Coreg) 3.125 mg Q12HR PO Last administered on 02/02/17 08:09; Start 02/01/17 at 21:00 A/P Problem List: (1) Atrial fibrillation with RVR ICD Code: I48.91 - Unspecified atrial fibrillation Status: Acute (2) CHF (congestive heart failure) ICD Code: I50.9 - Heart failure, unspecified Status: Acute (3) Non-compliance ICD Code: Z91.19 - Patient's noncompliance with other medical treatment and regimen (4) Alcohol abuse ICD Code: F10.10 - Alcohol abuse, uncomplicated (5) Tobacco abuse ICD Code: Z72.0 - Tobacco use Assessment and Plan 51-year-old man with 1. A-fib: w/ RVR -recent admit 01/11-01/15/17 diagnosed w/ A-fib, noncompliant w/ meds, -On oral Cardizem and off Cardizem drip. -Photonics Engineering Technician consulted and following. Carvedilol was added yesterday and now rate is controlled. -[id number] score of 1 -Patient is scheduled for cardiac catheterization tomorrow. CHF: Acute on Chronic. Systolic and Diastolic. -Echo 01/11/17 w/ EF 25-30%, Grade 2 Diastolic Dysfunction. -CXR w/ pulmonary vascular congestion. -Continue with Lasix. Non-Compliance: -recent admit, d/c'd w/ Cardizem, Lisinopril, Lasix however states unable to obtain patient assistance and can't afford medications. -Case management already consulted. Alcohol Abuse: -Drinks 4-6 beers daily, high risk for withdrawal, CIWA, Seizure Precautions, MVT/Thiamine/Folate replacement. Tobacco Abuse: -Counselled. Ativan prn. DVT Prophylaxis: SCD/Teds. Discharge Planning Patient is scheduled for a cardiac catheterization tomorrow. Kaylyn Diaz MD Feb 02, 2017 11:07
--- NOTE | 2017-02-02 13:23 | PD.CARD.PN ---
Subjective Subjective Remarks alert in nad Objective Medications Current Medications Medications (Trade) Dose Ordered Sig/Noemi Route Start Time Stop Time Status Last Admin (Lasix Inj) 40 mg BID@09,18 IV PUSH 01/31/17 09:00 02/02/17 08:10 (NS Flush) 2 ml UNSCH PRN IV FLUSH 01/30/17 20:30 (NS Flush) 2 ml BID IV FLUSH 01/30/17 21:00 02/02/17 08:10 (Zofran Inj) 4 mg Q6H PRN IVP 01/30/17 20:30 (Tylenol) 650 mg Q6H PRN PO 01/30/17 20:30 02/01/17 19:55 (Morphine Inj) 2 mg Q3H PRN IV PUSH 01/30/17 20:30 02/02/17 05:41 (Kiya-Colace) 1 tab BID PO 01/30/17 21:00 01/31/17 08:43 (Milk Of Magnesia Liq) 30 ml Q12H PRN PO 01/30/17 20:30 (Senokot) 17.2 mg Q12H PRN PO 01/30/17 20:30 (Dulcolax Supp) 10 mg DAILY PRN RECTAL 01/30/17 20:30 (Lactulose Liq) 30 ml DAILY PRN PO 01/30/17 20:30 (Ecotrin Ec) 81 mg DAILY PO 01/31/17 09:00 02/02/17 08:09 (Lipitor) 10 mg HS PO 01/30/17 21:00 02/01/17 19:55 (Prinivil) 2.5 mg DAILY PO 01/31/17 09:00 02/02/17 08:08 (Pill Splitter) 1 ea UNSCH PRN OTHER 01/30/17 21:00 (Folate) 1 mg DAILY PO 01/31/17 09:00 02/05/17 08:59 02/02/17 08:09 (Vitamin B1) 100 mg DAILY PO 01/31/17 09:00 02/02/17 08:09 (Theragran M Tab) 1 tab DAILY PO 01/31/17 09:00 02/05/17 08:59 02/01/17 09:25 (Romazicon Inj) 0.2 mg Q1M PRN IV PUSH 01/30/17 23:30 (Ativan) 1 mg Q4H PRN PO 01/30/17 23:30 (Ativan Inj) 1 mg Q4H PRN IV PUSH 01/30/17 23:30 (Ativan) 2 mg Q2H PRN PO 01/30/17 23:30 (Ativan Inj) 2 mg Q2H PRN IV PUSH 01/30/17 23:30 (Ativan Inj) 2 mg Q1H PRN IV PUSH 01/30/17 23:30 (Ativan Inj) 2 mg Q15M PRN IV PUSH 01/30/17 23:30 (Haldol Inj) 2 mg Q15M PRN IM 01/30/17 23:30 (Cardizem Cd) 240 mg DAILY PO 02/01/17 09:00 02/02/17 08:08 (KCl) 20 meq Q12HR PO 01/31/17 21:00 02/02/17 08:09 (Coreg) 3.125 mg Q12HR PO 02/01/17 21:00 02/02/17 08:09 Vital Signs / I&O Vital Signs Date Time Temp Pulse Resp B/P (MAP) Pulse Ox O2 Delivery O2 Flow Rate FiO2 02/02/17 12:01 86 02/02/17 11:15 97.9 76 18 88/55 (66) 97 02/02/17 11:00 101 02/02/17 10:00 84 02/02/17 09:00 96 02/02/17 08:15 98.5 106 18 105/60 (75) 96 02/02/17 08:00 106 02/02/17 07:01 87 02/02/17 06:02 102 02/02/17 05:01 104 02/02/17 04:01 73 02/02/17 03:01 67 02/02/17 03:01 98.0 67 18 128/76 (93) 94 02/02/17 02:01 82 02/02/17 01:01 79 02/02/17 00:03 68 02/01/17 23:01 98.2 76 18 97/64 (75) 93 02/01/17 23:01 76 02/01/17 22:01 79 02/01/17 21:01 72 02/01/17 20:01 74 10/24/17 19:01 98.0 73 18 96/66 (76) 94 02/01/17 19:01 73 02/01/17 18:01 69 02/01/17 17:01 74 02/01/17 16:00 84 02/01/17 15:15 97.9 64 18 115/47 (69) 94 02/01/17 15:01 75 02/01/17 14:00 84 I/O 02/01/17 02/01/17 02/01/17 02/02/17 02/02/17 02/02/17 07:00 15:00 23:00 07:00 15:00 23:00 Intake Total 975 ml 720 ml 730 ml Output Total 575 ml 1150 ml 650 ml Balance 400 ml -430 ml 80 ml Intake Oral 720 ml 720 ml 480 ml IV Total 255 ml 250 ml Output Urine Total 575 ml 1150 ml 650 ml # Voids 1 4 # Bowel Movements 1 0 Laboratory GENERAL: SKIN: Warm and dry. HEAD: Normocephalic. EYES: No scleral icterus. No injection or drainage. NECK: Supple, trachea midline. No JVD or lymphadenopathy. CARDIOVASCULAR: Regular rate and rhythm without murmurs, gallops, or rubs. RESPIRATORY: Breath sounds equal bilaterally. No accessory muscle use. GASTROINTESTINAL: Abdomen soft, non-tender, nondistended. MUSCULOSKELETAL: No cyanosis, or edema. BACK: Nontender without obvious deformity. No CVA tenderness. Assessment and Plan Problem List: (1) Cardiomyopathy ICD Codes: I42.9 - Cardiomyopathy, unspecified (2) CHF (congestive heart failure) ICD Codes: I50.9 - Heart failure, unspecified Status: Acute (3) Atrial fibrillation with RVR ICD Codes: I48.91 - Unspecified atrial fibrillation Status: Acute (4) Alcohol abuse ICD Codes: F10.10 - Alcohol abuse, uncomplicated Assessment and Plan 1.) AF/cardiomyopathy - rhc/lhc tomorrow, chads scoree=1, continue aspirin, cardizem, coreg, lisinopril Juan Alexandra MD Feb 02, 2017 13:23
[2017-02-02] MEDS: ATORVASTATIN 10 MG TAB PO SCH (21:15)
[2017-02-03] VITALS (16 sets, daily range): BP systolic 87–95; BP diastolic 59–72; PULSE 54–116; RESP 18; TEMP 98.2–98.7; O2SAT 94–96
[2017-02-03] MEDS: MORPHINE SULFATE 4 MG/ML INJ IV PUSH PRN ×3 (03:33→11:23)
[2017-02-03 07:18] LABS: HEMATOCRIT 46.4 % (39.0-51.0); MEAN CORPUSCULAR HEMOGLOBIN 33.2 PG (27.0-34.0); MEAN CORPUSCULAR HGB CONC 33.6 % (32.0-36.0); PLATELET COUNT 196 TH/MM3 (150-450); RED BLOOD COUNT 4.68 MIL/MM3 (4.50-5.90); RED CELL DISTRIBUTION WIDTH 15.5 % (11.6-17.2); REVIEW FLAG FINAL; WHITE BLOOD COUNT 12.3 TH/MM3 (4.0-11.0)
[2017-02-03 08:04] LABS: BICARBONATE 28.4 MEQ/L (21.0-32.0); POTASSIUM 4.1 MEQ/L (3.5-5.1)
[2017-02-03] MEDS: SODIUM CHLORIDE 0.9% FLUSH 10 ML FLUSH IV FLUSH SCH (08:24)
[2017-02-03] MEDS: THIAMINE HCL 100 MG TAB PO SCH (08:24)
[2017-02-03] MEDS: FOLIC ACID 1 MG TAB PO SCH (08:24)
[2017-02-03] MEDS: CARVEDILOL 3.125 MG TAB PO SCH (08:24)
[2017-02-03] MEDS: ASPIRIN EC 81 MG TABEC PO SCH (08:24)
[2017-02-03] MEDS: FUROSEMIDE 40 MG/4 ML VIAL IV PUSH SCH ×2 (08:24→16:54)
[2017-02-03] MEDS: MULTIVITAMINS/MINERALS THERAPEUTIC TAB PO SCH (08:25)
[2017-02-03] MEDS: POTASSIUM CHLORIDE 20 MEQ CONTROLLED RELEASE TAB PO SCH (08:25)
[2017-02-03] MEDS: LISINOPRIL 5 MG TAB PO SCH (08:25)
[2017-02-03] MEDS: DOCUSATE SODIUM 50 MG/SENNA 8.6 MG TAB PO SCH (08:25)
[2017-02-03] MEDS: DILTIAZEM-CD 240 MG CAP ER PO SCH (08:25)
--- NOTE | 2017-02-03 11:10 | HHI.PR ---
Subjective Remarks Follow-up for age of the patient RVR Patient's complained that when he exerting himself he feels like his heart is racing. Otherwise he denies he chest pain, palpation, lightheadedness dizziness or shortness of breathing at the moment. Patient scheduled for cardiac catheterization today. Objective Vitals Vital Signs Date Time Temp Pulse Resp B/P (MAP) Pulse Ox O2 Delivery O2 Flow Rate FiO2 02/03/17 08:00 98.7 86 18 95/65 (75) 95 02/03/17 08:00 78 02/03/17 06:00 114 02/03/17 05:00 71 02/03/17 04:00 84 02/03/17 03:00 76 02/03/17 03:00 98.2 76 18 94/60 (71) 94 02/03/17 02:00 78 02/03/17 01:00 94 02/03/17 00:00 80 02/02/17 23:00 58 02/02/17 23:00 98.5 66 18 128/70 (89) 95 02/02/17 22:00 51 02/02/17 21:56 18 02/02/17 21:00 58 02/02/17 20:00 97.9 57 18 91/58 (69) 98 02/02/17 20:00 56 02/02/17 19:00 60 02/02/17 18:00 64 02/02/17 17:00 62 02/02/17 16:01 60 02/02/17 15:15 98.1 57 18 87/58 (68) 97 02/02/17 15:00 58 02/02/17 14:00 58 02/02/17 13:00 70 02/02/17 12:01 86 02/02/17 11:15 97.9 76 18 88/55 (66) 97 02/02/17 11:00 101 I/O 02/02/17 02/02/17 02/02/17 02/03/17 02/03/17 02/03/17 07:00 15:00 23:00 07:00 15:00 23:00 Intake Total 730 ml 720 ml 240 ml Output Total 650 ml 850 ml 850 ml Balance 80 ml -130 ml -610 ml Intake Oral 480 ml 720 ml 240 ml IV Total 250 ml Output Urine Total 650 ml 850 ml 850 ml # Voids 4 # Bowel Movements 0 1 Result Diagram: 02/03/1760002/03/17600 Objective Remarks GENERAL: in NAD CARDIOVASCULAR: Irregular rate irregular rhythm without murmurs, gallops, or rubs. RESPIRATORY: Breath sounds equal bilaterally. No accessory muscle use. GASTROINTESTINAL: Abdomen soft, non-tender, nondistended. MUSCULOSKELETAL: No cyanosis, or edema. BACK: Nontender without obvious deformity. No CVA tenderness. Medications and IVs Current Medications Diltiazem HCl (Cardizem Inj) 20 mg ONCE ONCE IV Last administered on 18:51; Start 01/30/17 at 18:30; Stop 01/30/17 at 18:31; Status DC Furosemide (Lasix Inj) 40 mg ONCE ONCE IV PUSH Last administered on 18:52; Start 01/30/17 at 18:30; Stop 01/30/17 at 18:31; Status DC Diltiazem HCl 125 mg/Sodium Chloride 125 ml @ 5 mls/hr TITRATE PRN IV Tachycardia Last administered on 01/31/17 21:21; Start 01/30/17 at 19:30; Stop 02/01/17 at 09:14; Status DC Furosemide (Lasix Inj) 40 mg BID@09,18 IV PUSH Last administered on 02/03/17 08:24; Start 01/31/17 at 09:00 Sodium Chloride (NS Flush) 2 ml UNSCH PRN IV FLUSH FLUSH AFTER USING IV ACCESS ; Start 01/30/17 at 20:30 Sodium Chloride (NS Flush) 2 ml BID IV FLUSH Last administered on 02/03/17 08 :24; Start 01/30/17 at 21:00 Ondansetron HCl (Zofran Inj) 4 mg Q6H PRN IVP NAUSEA OR VOMITING; Start at 20:30 Acetaminophen (Tylenol) 650 mg Q6H PRN PO FEVER/PAIN SCALE 1 TO 2 Last administered on 02/01/17 19:55; Start 01/30/17 at 20:30 Morphine Sulfate (Morphine Inj) 2 mg Q3H PRN IV PUSH Pain 6-10 Last administered on 02/03/17 06:30; Start 01/30/17 at 20:30 Senna/Docusate Sodium (Kiya-Colace) 1 tab BID PO Last administered on 08:43; Start 01/30/17 at 21:00 Magnesium Hydroxide (Milk Of Magnesia Liq) 30 ml Q12H PRN PO Mild constipation ; Start 01/30/17 at 20:30 Sennosides (Senokot) 17.2 mg Q12H PRN PO Moderate constipation; Start at 20:30 Bisacodyl (Dulcolax Supp) 10 mg DAILY PRN RECTAL SEVERE CONSITIPATION; Start 01/30/17 at 20:30 Lactulose (Lactulose Liq) 30 ml DAILY PRN PO SEVERE CONSITIPATION; Start 01/30 at 20:30 Aspirin (Ecotrin Ec) 81 mg DAILY PO Last administered on 02/03/17 08:24; Start 01/31/17 at 09:00 Atorvastatin Calcium (Lipitor) 10 mg HS PO Last administered on 02/02/17 21: 15; Start 01/30/17 at 21:00 Lisinopril (Prinivil) 2.5 mg DAILY PO Last administered on 02/02/17 08:08; Start 01/31/17 at 09:00 Miscellaneous (Pill Splitter) 1 ea UNSCH PRN OTHER SEE LABEL COMMENTS; Start 01/30/17 at 21:00 Folic Acid (Folate) 1 mg DAILY PO Last administered on 02/03/17 08:24; Start 01/31/17 at 09:00; Stop 02/05/17 at 08:59 Thiamine HCl (Vitamin B1) 100 mg DAILY PO Last administered on 02/03/17 08:24 ; Start 01/31/17 at 09:00 Multivitamins/ Minerals Therapeutic (Theragran M Tab) 1 tab DAILY PO Last administered on 02/03/17 08:25; Start 01/31/17 at 09:00; Stop 02/05/17 at 08 :59 Flumazenil (Romazicon Inj) 0.2 mg Q1M PRN IV PUSH SEE LABEL COMMENTS; Start at 23:30 Lorazepam (Ativan) 1 mg Q4H PRN PO CIWA 8 - 10; Start 01/30/17 at 23:30 Lorazepam (Ativan Inj) 1 mg Q4H PRN IV PUSH CIWA 8 - 10; Start 01/30/17 at 23: 30 Lorazepam (Ativan) 2 mg Q2H PRN PO CIWA 11-14; Start 01/30/17 at 23:30 Lorazepam (Ativan Inj) 2 mg Q2H PRN IV PUSH CIWA 11-14; Start 01/30/17 at 23: 30 Lorazepam (Ativan Inj) 2 mg Q1H PRN IV PUSH CIWA 15-20; Start 01/30/17 at 23: 30 Lorazepam (Ativan Inj) 2 mg Q15M PRN IV PUSH CIWA > 20; Start 01/30/17 at 23: 30 Haloperidol Lactate (Haldol Inj) 2 mg Q15M PRN IM SEE LABEL COMMENTS; Start at 23:30 Aspirin (Ecotrin Ec) 81 mg DAILY PO ; Start 02/01/17 at 09:00; Stop 02/01/17 at 09:00; Status DC Diltiazem HCl (Cardizem Cd) 240 mg DAILY PO Last administered on 02/03/17 08: 25; Start 02/01/17 at 09:00 Potassium Chloride (KCl) 20 meq Q12HR PO Last administered on 02/03/17 08:25 ; Start 01/31/17 at 21:00 Carvedilol (Coreg) 3.125 mg ONCE ONCE PO Last administered on 02/01/17 13:45 ; Start 02/01/17 at 13:45; Stop 02/01/17 at 14:59; Status DC Carvedilol (Coreg) 3.125 mg Q12HR PO Last administered on 02/03/17 08:24; Start 02/01/17 at 21:00 A/P Problem List: (1) Atrial fibrillation with RVR ICD Code: I48.91 - Unspecified atrial fibrillation Status: Acute (2) CHF (congestive heart failure) ICD Code: I50.9 - Heart failure, unspecified Status: Acute (3) Non-compliance ICD Code: Z91.19 - Patient's noncompliance with other medical treatment and regimen (4) Alcohol abuse ICD Code: F10.10 - Alcohol abuse, uncomplicated (5) Tobacco abuse ICD Code: Z72.0 - Tobacco use Assessment and Plan 51-year-old man with 1. A-fib: w/ RVR -recent admit 01/11-01/15/17 diagnosed w/ A-fib, noncompliant w/ meds, -On oral Cardizem and off Cardizem drip. -Intensive Care Medicine Specialist consulted and following. Carvedilol was added yesterday and now rate is controlled. -[id number] score of 1 -Patient scheduled for cart catheterization today. CHF: Acute on Chronic. Systolic and Diastolic. -Echo 01/11/17 w/ EF 25-30%, Grade 2 Diastolic Dysfunction. -CXR w/ pulmonary vascular congestion. -Continue with Lasix. Non-Compliance: -recent admit, d/c'd w/ Cardizem, Lisinopril, Lasix however states unable to obtain patient assistance and can't afford medications. -Case management already consulted. Alcohol Abuse: -Drinks 4-6 beers daily, high risk for withdrawal, CIWA, Seizure Precautions, MVT/Thiamine/Folate replacement. Tobacco Abuse: -Counselled. Ativan prn. DVT Prophylaxis: SCD/Teds. Discharge Planning Patient is scheduled for a cardiac catheterization today. Once patient is cleared by reject opener can be discharged to home. Kaylyn Diaz MD Feb 03, 2017 11:10
[2017-02-03] MEDS ORDERED: diphenhydrAMINE HCL 50 MG/ML VIAL ONE (13:52)
[2017-02-03] MEDS ORDERED: FAMOTIDINE 20 MG/2 ML VIAL ONE (13:53)
[2017-02-03] MEDS ORDERED: methylPREDNISolone SOD SUCC 125 MG/2 ML VIAL ONE (13:53)
[2017-02-03] MEDS ORDERED: MIDAZOLAM HCL 2 MG/2 ML VIAL ONE (14:09)
[2017-02-03] MEDS ORDERED: ONDANSETRON HCL 4 MG/2 ML VIAL ONE (14:23)
[2017-02-03] MEDS ORDERED: SODIUM CHLORIDE 0.9% FLUSH 10 ML FLUSH IV FLUSH PRN (14:30)
[2017-02-03] MEDS ORDERED: BACITRACIN OINT 0.9 GM PKT TOP ONE (14:30)
[2017-02-03] MEDS ORDERED: MISC INFORMATION XX ONE (14:30)
--- NOTE | 2017-02-03 14:38 | CATHPROC ---
[employer] HIS Report Study Information Study Number Admission Scheduled Start Study Start [id number] Jan 30 2017 8:40PM 02/03/2017 Feb 03 2017 1:49PM [facility] [facility] Cardiac Catheterization Admit Source Facility Department Emergency department [facility] - Autism Specialist Physician and Clinical Staff Initial Juan Robledo Chief Meter Reader Coty Garcia,BETZAIDA Recorder Pamela Latham,RT(R) Scrub Jame Burrell RCIS(BS) Procedures Performed Procedure Location (Site) Vessel Name Coronary Angiograms LCA Left Coronary Coronary Angiograms RCA Right Coronary Equipment Time Insurance Plan Specialist Description Size Mfg Part Number Used/Scraped CATHETER, FR5 SWAN AJIT 13:59 Scrapblog FR 5 [id number] *[id number] Used MONITOR TRANSDUCER, TRUWAVE [id number] 13:59 VAN ELLIS * Used W/STOCKCOCK *[id number] *[id number] *[id number] 13:59 MEDLINE INDUSTRIES PACK, CCL CUSTOM * Used *[id number] 13:59 MEDLINE PACER PEN, SKIN DUAL W/ RULER * Used *[id number] 13:59 Aspire MEDICAL SHEATH, FR5.5 PRELUDE 11CM FR 5.5 Used 038ACT# [id number] 13:59 Aspire MEDICAL WIRE, 3MMJ .035 180CM 180CM Used *[id number] 13:59 NAMIC MANIFOLD, 4 PORT * Used *[id number] 13:59 NYCOMED OMNIPAQUE, 350 MG, 150ML 150ML [id number] Used [id number] 13:59 SLAAZAR MEDICAL BLANKET,WARM AIR CCL * Used *[id number] 13:59 TERUMO MEDICAL SHEATH, FR4 TERUMO (10CM) FR 4 Used *[id number] History: Allergies Allergy Reaction *MDRO Multi-Drug Resistant Organism Fish Containing Products RASH potassium iodide RASH sodium iodide RASH codeine RASH iodine RASH povidone-iodine RASH milk RASH History: Risk Factors Family History of Hypertension Dyslipidemia Previous [place] Previous Heart Failure Premature CAD No No No No No Prior Valve Prior PCI Prior CABG Surgery No No No Cerebrovascular Peripheral Artery Chronic Lung On Dialysis Diabetes Disease Disease Disease No No No No No History: Other Current Smoker Method Yes Cigarettes Labs Hgb (g/dl) Hct (%) WBC (l/cumm) Platelets (thousands) 11.60-17.00 35.00-51.00 4.00-11.00 150.00-450.00 11.7 34.8 8 98 Glucose (mg/dl) BUN (mg/dl) Creatinine (mg/dl) BUN:Creatinine (1:x) 74.00-106.00 7.00-18.00 0.50-1.30 10.00-20.00 79 16 0.6 26.7 Na (meq/l) K (meq/l) 136.00-145.00 3.50-5.10 136 4.4 INR (PTT:PT) 0.90-1.10 1.1 Troponin I (ng/ml) CPK (u/l) CPK-MB (ng/ML) 0.02-0.05 26.00-308.00 0.50-3.60 9.4 425 7.3 Medication Medication Total Dose (Bolus/Oral) Medication Total Dosage/Unit 1% XYLOCAINE 20 mL BENADRYL 50 mg PEPCID 20 mg SOLU-MEDROL 60 mg VERSED 2 mg ZOFRAN 4 mg Medications (Bolus/Oral) Medication Time Given Dosage/Unit Administered By Reason PEPCID 02/03/2017 2:02:00 PM 20 mg Coty Garcia 20 mg PEPCID given in lab by Coty Garcia RN in Right Forearm via Peripheral IV. Ordered by Juan Avery. BENADRYL 02/03/2017 2:03:24 PM 50 mg Coty Garcia 50 mg BENADRYL given in lab by Coty Garcia RN in Right Forearm via Peripheral IV. Ordered by Juan Pedroza. SOLU-MEDROL 02/03/2017 2:04:00 PM 60 mg Coty Garcia 60 mg SOLU-MEDROL given in lab by Coty Garcia RN in Right Forearm via Peripheral IV. Ordered by Juan Alexandra. 1% XYLOCAINE 02/03/2017 2:08:42 PM 20 mL Juna Alexandra 20 mL 1% XYLOCAINE given in lab by Juan Alexandra in Right Groin via Subcutaneous. VERSED 02/03/2017 2:12:26 PM 2 mg Coty Garcia 2 mg VERSED given in lab by Coty Garcia RN in Right Forearm via Peripheral IV. Ordered by Juan Torres. ZOFRAN 02/03/2017 2:24:00 PM 4 mg Coty Garcia 4 mg ZOFRAN given in lab by Coty Garcia RN in Right Forearm via Central IV. Ordered by Juan Alexandra. Medication (Drip) Medication Time Given Dosage/Unit Concentration/Unit Diluent (ml) Solution IV Solutions 02/03/2017 1:49:51 PM 50 mL (IV) NaCl .9 IV Solutions given in lab by Coty Garcia RN in Right Forearm via Peripheral IV. Pump/Drip Flow u sing NaCl .9. Initial Case Assessment Cardiovascular HR Rhythm NIBP Chest Pain 65 SR 108/65 0 Edema Present Skin color Skin None Normal Warm Dry Neurological State Oriented to time-place- Alert Moves all extremities person Respiration - General Respiration Rate (B/min) 10 Chronological Log Time Study Chronological Log 13:49:00 MD arrived. 13:49:19 Patient arrived via Bed. 13:49:23 Patient Name, D.O.B, / Armband Verified By R.N. 13:49:23 Consent signed by the physician and the patient and verified by the Autism Specialist staff. 13:49:24 Pre-op and post- op instructions given; patient acknowledges understanding of instructions. 13:49:25 Verbal Stimulation=2 Physical Stimulation=2 Airway=2 Respiration=2 TOTAL=8. (0=absent, 1=li mited, 2=present) 13:49:35 Patient has been NPO for More than 6Hrs. 13:49:36 Skin Breakdown- none per pt 13:49:46 Patient Warmer Placed on the Table. 13:49:47 Jose Alfredo Prominences Protected 13:49:50 A # 20 IV was noted in the Forearm (right). Grade = 0 13:49:51 IV Solutions given in lab by Coty Garcia RN in Right Forearm via Peripheral IV. Pump/D rip Flow using NaCl .9. 13:50:07 History and physical on the chart or being dictated. Assessment: Initial Case, HR=65 BPM, Rhythm=SR, GSAR=545/65 mmhg, Chest Pain=0, Edema=None, Col or=Normal, Skin = Warm, Dry 13:50:08 Neurological: State=Alert, Ox3, OCONNOR Respiration: Resp=10 B/min Vitals capture started with the following parameters, Patient=Adult, Interval=5 min, Initial Pr uwpkbp=483 mmHg, 13:59:30 Deflation Rate=5 mmHg, Cuff placed on Right Arm 14:00:11 HR=68 bpm, IFMH=683/65 mmhg, Resp=8 B/min 14:02:00 20 mg PEPCID given in lab by Coty Garcia, BETZAIDA in Right Forearm via Peripheral IV. Ordere d by Juan Alexandra. 14:02:36 Reference ECG taken 14:03:24 50 mg BENADRYL given in lab by Coty Garcia, BETZAIDA in Right Forearm via Peripheral IV. Orde red by Juan Alexandra. 60 mg SOLU-MEDROL given in lab by Coty Garcia RN in Right Forearm via Peripheral IV. Order ed by Ibrahima, 14:04:00 Juan. 14:04:55 HR=63 bpm, IMYT=255/89 mmhg, Resp=19 B/min Time Out. Correct patient, correct procedure, correct physician, power injector loaded, or not loaded with contrast with 14:08:32 surgical team present. Time Out Concurred by MD and individual staff in procedure. 14:08:38 Case Start 14:08:42 20 mL 1% XYLOCAINE given in lab by Juan Alexandra in Right Groin via Subcutaneous. 14:10:01 HR=68 bpm, NIBP=94/78 mmhg, SpO2=96 %, Resp=25 B/min 14:10:09 Access site was Right Femoral Vein. 14:10:18 A SHEATH, FR5.5 PRELUDE 11CM FR 5.5 was advanced into the Fem Vein (right) using the Percut aneous technique. 14:10:56 Access site was Right Femoral Artery. 14:11:18 A SHEATH, FR4 TERUMO (10CM) FR 4 was advanced into the Fem Art (right) using the Percutaneo us technique. 14:11:53 Saturation: Site=Ao (Aorta) , O2=95.7 %, Hgb=11.7 gm/dl, Condition=Condition 1. Used in ariane culation. 14:12:26 2 mg VERSED given in lab by Coty Garcia, BETZAIDA in Right Forearm via Peripheral IV. Ordered by Ibrahima, Juan. A CATHETER, FR5 SWAN AJIT MONITOR FR 5 was advanced over a wire. OMNIPAQUE, 350 MG, 150ML 150ML was 14:12:27 used for injections. 14:13:28 Pressure channel 1 zeroed. Recorded Pressure: PCW, HR=53, Condition=Condition 1 14:14:29 (Pulmonary Capillary Wedge) PCW 31/32/24 Recorded Pressure: MPA, HR=61, Condition=Condition 1 14:14:46 (Main Pulmonary Artery) MPA 17/ 14:14:51 Saturation: Site=PA (Pulmonary Artery) , O2=68.4 %, Hgb=11.7 gm/dl, Condition=Condition 1. Used in calculation. Recorded Pressure: RV, HR=60, Condition=Condition 1 14:15:36 (Right Ventricle) RV 32//10 Recorded Pressure: RA, HR=66, Condition=Condition 1 14:15:50 (Right Atrium) RA 24/03/11 14:16:26 HR=55 bpm, NIBP=95/64 mmhg, SpO2=96.0 %, Resp=11 B/min 14:16:47 Saturation: Site=RA (Right Atrium) , O2=70.8 %, Hgb=11.7 gm/dl, Condition=Condition 1. Used in calculation. 14:16:55 [place] Ajit Catheter Removed A JR 4.0 INFINITI CATHETER FR 4 was advanced over a wire. OMNIPAQUE, 350 MG, 150ML 150ML was us ed for 14:17:06 injections. Recorded Pressure: LV, Ao, HR=56, Condition=Condition 1 14:17:38 (Left Ventricle) LV 84/11/16, (Aorta) Ao 86/62/74 14:18:48 The RCA was injected and visualized at various angles. OMNIPAQUE, 350 MG, 150ML 150ML used . 14:18:54 Catheter was removed A JL 4.0 INFINITI CATHETER FR 4 was advanced over a wire. OMNIPAQUE, 350 MG, 150ML 150ML was us ed for 14:18:57 injections. 14:19:06 The LCA was injected and visualized at various angles. OMNIPAQUE, 350 MG, 150ML 150ML used . 14:20:28 Catheter was removed 14:20:33 Case End 14:20:35 HR=62 bpm, NIBP=96/56 mmhg, SpO2=95.0 %, Resp=24 B/min 14:22:31 Sheath(s) left in place, will be removed in Holding Area 14:22:45 Sterile dressing applied to site 14:22:46 No case complications noted. 14:22:48 Cine recording checked. 14:22:51 Bedside Report will be given. 14:22:54 Contrast Scanned 14:22:57 A Left and Right Heart Cath was performed. 14:22:58 Patient moved to stretcher 14:24:00 4 mg ZOFRAN given in lab by Coty Garcia, RN in Right Forearm via Central IV. Ordered by Juan Alexandra. 14:25:35 HR=60 bpm, NIBP=96/74 mmhg, SpO2=91 %, Resp=20 B/min End Study - Contrast Media Used In Study Contrast Total Opened (mL) Total Used (mL) Total Wasted (mL) Omnipaque 25 25 0 End Study - Maximum Contrast Load Max Contrast Load (mL) 750.0 End Study - Radiation Exposure Fluoro Time (minutes) 2.9 End Study - Patient Disposition Complications Transferred To Interventional Outcome No Telemetry Bed No attempt made
[2017-02-03] MEDS ORDERED: LIPI10TA PO (15:04)
[2017-02-03] MEDS ORDERED: CARV3.125 PO (15:04)
[2017-02-03] MEDS ORDERED: POTA20TA5 PO (15:04)
[2017-02-03] MEDS ORDERED: LISI-519 PO (15:04)
[2017-02-03] MEDS ORDERED: FURO20TA PO (15:04)
[2017-02-03] MEDS ORDERED: DILT1TAB2 PO (15:04)
--- NOTE | 2017-02-03 15:05 | HHI.DCPOC ---
Discharge Care Plan Diagnosis: (1) Non-compliance (2) Atrial fibrillation with RVR (3) Acute systolic CHF (congestive heart failure) Goals to Promote Your Health * To prevent worsening of your condition and complications * To maintain your health at the optimal level Directions to Meet Your Goals Take your medications as prescribed Follow your dietary instruction Follow activity as directed Keep your appointments as scheduled Take your immunizations and boosters as scheduled If your symptoms worsen call your PCP, if no PCP go to Urgent Care Center or Emergency Room Smoking is Dangerous to Your Health. Avoid second hand smoke Call the 24-hour hour crisis hotline for domestic abuse at Kaylyn Diaz MD Feb 03, 2017 15:05
--- NOTE | 2017-02-03 15:06 | HHI.DS ---
Discharge Summary Admission Date Jan 30, 2017 at 20:40 Admitting Diagnosis (1) Atrial fibrillation with RVR ICD Code: I48.91 - Unspecified atrial fibrillation Status: Acute (2) CHF (congestive heart failure) ICD Code: I50.9 - Heart failure, unspecified Status: Acute (3) Non-compliance ICD Code: Z91.19 - Patient's noncompliance with other medical treatment and regimen (4) Alcohol abuse ICD Code: F10.10 - Alcohol abuse, uncomplicated (5) Tobacco abuse ICD Code: Z72.0 - Tobacco use Brief History - From Admission This is a 51-year-old male with PMH of HTN, A. fib, CHF (Echo 01/11/17 w/ EF 25- 35%, Grade 2 Diastolic Dysfxn), Alcohol Abuse, Tobacco Abuse and Noncompliance was brought to the ER secondary to complaints of chest pain and SOB. Found to be in A-fib w/ RVR, HR 120's. Recent admit 01/10-01/15/17 for same, found to have New-Onset Afib and CHF w/ elevated troponin, s/p eval by Cardiology w/ recommendation for medical management. Was d/c'd home w/ Diltiazem, Lisinopril , Lasix and Statin, however pt non-compliant w/ medications. States he attempted to get patient assistance but was unable to. S/p Cardizem by EMS, additional dose of Cardizem IV in ER, ultimately started on Cardizem gtt for persistent Afib w/ RVR. CBC unremarkable. Chemistry essentially remarkable. Troponin negative. BNP 724. INR 1.1. CXR with cardiomegaly and vascular congestion, no airspace disease. S/p Lasix in ER. CBC/BMP: 02/03/17 0601 02/03/17 0601 Significant Findings Laboratory Tests Test 02/01/17 04:22 02/03/17 06:01 White Blood Count 12.3 TH/MM3 (4.0-11.0) Blood Urea Nitrogen 21 MG/DL (7-18) Estimat Glomerular Filtration Rate 84 ML/MIN (>89) PE at Discharge GENERAL: in NAD CARDIOVASCULAR: Irregular rate irregular rhythm without murmurs, gallops, or rubs. RESPIRATORY: Breath sounds equal bilaterally. No accessory muscle use. GASTROINTESTINAL: Abdomen soft, non-tender, nondistended. MUSCULOSKELETAL: No cyanosis, or edema. BACK: Nontender without obvious deformity. No CVA tenderness. Pt Condition on Discharge: Stable Discharge Disposition: Discharge Home Discharge Instructions DIET: Follow Instructions for: Heart Healthy Diet Activities you can perform: Regular-No Restrictions Kaylyn Diaz MD Feb 03, 2017 15:06
[2017-02-03] MEDS ORDERED: IOHEXOL 350 MG/ML 50 ML BTL (for Cath Lab) OTHER ONE (15:29)
[2017-02-03] MEDS ORDERED: SODIUM CHLORIDE 0.9% FLUSH 10 ML FLUSH IV FLUSH SCH (21:00)
--- NOTE | 2017-02-04 06:57 | MA ---
cc: JOSÉ LUIS MAS M.D. DATE 02/03/2017 PROCEDURE PERFORMED Right heart catheterization, left heart catheterization. Left ventriculography, coronary angiography. INDICATIONS Cardiomyopathy, congestive heart failure. [place] Heart Association class III, A. fib, arrhythmia, tobacco use, multiple cardiac risk factors. PROCEDURAL STATEMENT The patient was brought to the cardiac catheterization laboratory, prepped and draped in the usual sterile fashion. 10 cc's of 1% lidocaine was used to locally anesthetize the right common femoral artery. A 4-Ivorian sheath, subsequently placed in the right common femoral artery. A 5-Ivorian sheath placed in the femoral vein. Right heart catheterization was performed first with the following findings. Wedge pressure 31/32-24. PA pressure 36/17-25. RV pressure 32/65-10. RA pressure 14/12-11. The cardiac output by Laurent is 6.0 liters per minute. The cardiac index 2.9 liters per meter squared per minute. SVR 134 dynes. Sats 95% on room air. PA sat 68.4% on room air. RA sat 70.8% on room air. Left heart catheterization was performed with a 4-Ivorian JR-4, JL-4 catheter with the following findings: LV pressure 85/12-15, EF 30%, global hypokinesis. The right coronary is dominant. There is subtle plaque in the proximal and proximal mid segment up to 5% angiographically. The left main coronary artery has no significant disease angiographically. The left circumflex vessel has no significant disease angiographically. The left circ gives off two distal posterolateral arteries which are small to medium size vessels with no significant disease angiographically. There is a medium to large-sized ramus vessel which bifurcates in the [id number] segment, approaches the apex and has no significant disease angiographically. The LAD is transapical. It has mild disease in the mid segment up to 10-20% angiographically. The first diagonal artery is a medium-sized vessel with no significant disease angiographically. CONCLUSION 1. Angiographically, mild two-vessel coronary disease in a right-dominant system as detailed above. 2. Cardiomyopathy which appears be nonischemic. EF 30% with global hypokinesis. 3. Mild pulmonary artery hypertension. RECOMMENDATIONS Recommend medical management of coronary artery disease. Cardiac risk factor modification. Continue Lisinopril and Coreg and aspirin. The patient has a CHADS score of one. MD CASSY Vinson/LI /2:28 PM /6:32 AM
== END 2017-02-03 18:00 | disposition home or self-care (01) | DRG 286 ==
LOC: NEPC 17:57 → NEDA 20:40 → HCIN 21:34
PROVIDERS: ADMIT Family Medicine; ATTEND Family Medicine
PROC: B2111ZZ Fluoroscopy of Multiple Coronary Arteries using Low Osmolar Contrast (ICD-10-PCS; 2017-02-03)
PROC: B2151ZZ Fluoroscopy of Left Heart using Low Osmolar Contrast (ICD-10-PCS; 2017-02-03)
PROC: 4A023N8 Measurement of Cardiac Sampling and Pressure, Bilateral, Percutaneous Approach (ICD-10-PCS; principal; 2017-02-03 13:45)
DX: I48.1 Persistent atrial fibrillation (principal); I50.43 Acute on chronic combined systolic (congestive) and diastolic (congestive) heart failure; I42.9 Cardiomyopathy, unspecified; I27.20 Pulmonary hypertension, unspecified; I11.0 Hypertensive heart disease with heart failure; I25.10 Atherosclerotic heart disease of native coronary artery without angina pectoris; F10.10 Alcohol abuse, uncomplicated; F17.210 Nicotine dependence, cigarettes, uncomplicated; R00.0 Tachycardia, unspecified; G47.30 Sleep apnea, unspecified; Z91.14 Patient's other noncompliance with medication regimen; Z91.19 Patient's noncompliance with other medical treatment and regimen; Y90.9 Presence of alcohol in blood, level not specified
CPT/HCPCS: 71010; 76937; 80048; 80053; 82550; 82552; 82810; 82948; 83735; 83880; 84443; 84484; 85025; 85027; 85610; 85730; 87641; 93005; 93453; 96374; 96375; 99152; C1769; C1893; J1200; J1940; J2250; J2270; J2405; J2930; Q9967